=== PATIENT | male | born 1960 | race Caucasian/White ===

== ENCOUNTER 2020-07-20 19:40 | Inpatient (IN) | payer OTHER, SELFPAY ==
[~2020-07-20 19:40] MED LIST: Iopamidol-370 76% 500 ML 1 ML ONE
[2020-07-20] MEDS ORDERED: Norepinephrine 8 MG/0.9% NS 250 ML ONE (19:54)
[2020-07-20 20:03] LABS: Bacteria/HPF 3+ HPF (None Seen); Bilirubin Negative (Negative); Blood, Urine Trace (Negative); Clarity Turbid (Clear); Glucose, Urine (Dipstick) Normal (Negative); Ketone, Urine Negative (Negative); Leukocyte 75 Leu/uL (Negative); Nitrite Negative (Negative); Protein, Urine (Dipstick) 70 mg/dL (Neg-Trace); Specific Gravity, Urine 1.017 (1.002-1.036); Squamous Epithelial 0-3 HPF (0-3); Urobilinogen 3 mg/dL (Less than 2)
[2020-07-20 20:07] LABS: Actual Bicarbonate (HCO3a) 16.1 mEq/L (22-28); Analyzer IN Cardio ER; Base Excess (BEa) -14.3 mEq/L (-2.0 to +3.0); CO2 Tension 53.8 mmHg (35.0-45.0); Calcium, Ionized (arterial) 1.19 mmol/L (1.12-1.30); Carboxyhemoglobin (COHb) 2.7 gm% (0.0-3.0); O2 Tension (PaO2), arterial 95.9 mmHg (80.0-100.0); Potassium - ABG Lab 3.32 mmol/L (3.70-5.30)
[2020-07-20 20:08] LABS: pH, Arterial 7.09 (7.35-7.45)
[2020-07-20 20:09] LABS: Sperm/HPF Rare HPF (None Seen)
[2020-07-20 20:09] LABS: Hemoglobin (Hb) 20.8 g/dL (14.0-18.0); Puncture Site RRA
[2020-07-20 20:13] LABS: Hemoglobin 20.5 g/dL (14.0-18.0); Mean Corpuscular HGB CONC 33.1 g/dL (32.0-36.0); Mean Corpuscular Hemoglobin 30.1 pg (27.0-31.0); Mean Corpuscular Volume 90.9 fL (78.0-98.0); Mean Platelet Volume 7.7 fL (7.4-10.4); Platelet Count 325 thou/uL (130-400); RBC Distribution Width 12.3 % (11.5-14.5); White Blood Cell (WBC) Count 21.9 thou/uL (4.8-10.8)
[2020-07-20 20:15] LABS: INR-International Normal Ratio 1.5; PTT 47.7 sec (22.9-36.1); Prothrombin Time 18.9 sec (12.0-14.7)
[2020-07-20 20:16] LABS: Amphetamine Not Detected (NotDetected); Barbiturates Screen Not Detected (NotDetected); Benzodiazepine Screen Not Detected (NotDetected); Cocaine Metabolite Screen Not Detected (NotDetected); Medtox Control Line Valid? VALID (VALID); Medtox Reader # READER 1; Methadone Not Detected (NotDetected); Methamphetamine Not Detected (NotDetected); Opiate Screen Not Detected (NotDetected); Oxycodone Screen Not Detected (NotDetected); Phencyclidine (PCP) Not Detected (NotDetected); THC/Cannabinoid Screen Not Detected (NotDetected); Tricyclic Screen Not Detected (NotDetected)
[2020-07-20 20:23] LABS: Acetaminophen Less than 6.0 mcg/mL (10.0-30.0); Alcohol Less than 10 mg/dL (Less than 10); Salicylate Less than 8.0 mg/dL (15.0-30.0)
[2020-07-20] MEDS ORDERED: Vancomycin 1 GM/200 ML BAG ONE (20:25)
[2020-07-20] MEDS ORDERED: Cefepime 2 GM VIAL ONE (20:25)
[2020-07-20 20:30] LABS: D-Dimer Test Greater than 20.00 *mcg/mL (0.27-0.43)
[2020-07-20] MEDS ORDERED: Vasopressin 20 UNIT, Admixture Fee 1 EACH in Sodium Chloride 0.9% 50 ML IV SCH (20:30)
[2020-07-20 20:34] LABS: Band 23 % (5-11); Eosinophils 1 % (0-10); Lymphocytes 16 % (21-51); MDiff Complete? YES; Monocytes 1 % (0-10); Neutrophil 51 % (42-75); Platelet Morphology Comment Appears Adequate; Polychromasia SLIGHT = 2-3 cells (100X) (0-2/hpf); Reactive Lymphocytes 8 % (0-10)
[2020-07-20 20:37] LABS: Albumin 3.4 g/dL (3.5-5.0)
[2020-07-20 20:39] LABS: Calcium 7.8 mg/dL (7.8-10.44); Chloride 110 mmol/L (98-107); Potassium 3.4 mmol/L (3.5-5.1); Sodium 137 mmol/L (136-145)
[2020-07-20 20:40] LABS: Actual Bicarbonate (HCO3a) 16.1 mEq/L (22-28); Analyzer IN Cardio ER; Base Excess (BEa) -12.9 mEq/L (-2.0 to +3.0); Calcium, Ionized (arterial) 1.05 mmol/L (1.12-1.30); Carboxyhemoglobin (COHb) 3.1 gm% (0.0-3.0); Hemoglobin (Hb) 16.9 g/dL (14.0-18.0); O2 Tension (PaO2), arterial 135.1 mmHg (80.0-100.0); Potassium - ABG Lab 3.08 mmol/L (3.70-5.30)
[2020-07-20 20:40] LABS: Globulin 2.7 g/dL (2.4-3.5); Glucose 222 mg/dL (70-105); Protein, Total 6.1 g/dL (6.0-8.3)
[2020-07-20 20:41] LABS: Anion Gap 22 mmol/L (10-20)
[2020-07-20 20:42] LABS: pH, Arterial 7.14 (7.35-7.45)
[2020-07-20 20:42] LABS: Bilirubin, Total 0.3 mg/dL (0.2-1.2)
[2020-07-20 20:43] LABS: Alkaline Phosphatase 96 U/L (40-110); Calc. Creatinine Clearance 0 mL/min (70-130); Estimated GFR-MDRD 68
[2020-07-20 20:44] LABS: BUN (Urea Nitrogen) 12 mg/dL (8.4-25.7); Carbon Dioxide 8 mmol/L (22-29)
[2020-07-20 20:45] LABS: AST (SGOT) 37 U/L (5-34)
[2020-07-20 20:46] LABS: ALT (SGPT) 25 U/L (8-55); CK (CPK) 149 U/L (30-200); Lipase 81 U/L (8-78)
[2020-07-20 20:48] LABS: CKMB 6.9 ng/mL (0-6.6)
--- NOTE | 2020-07-20 20:51 | RAD ---
CHEST ONE VIEW: 07/20/20 COMPARISON: 07/24/16. HISTORY: Unresponsive patient. FINDINGS: Endotracheal tube terminates at the level of the clavicles. Nasogastric tube extends beyond the diaph ragm. There are sternotomy wires. There is atherosclerosis of the aorta. Normal cardiac silhouette. Diminis hed lung volumes, likely due to poor inspiration. Chronic changes are suspected. Superimposed infiltr ate in the right lower lobe and left lower lobe cannot be entirely excluded. Small left sided effusion. No pneumothorax or acute osseous abnormalities. IMPRESSION: 1. Multilobar pneumonia versus aspiration. 2. Small left effusion. POS: PPP
[2020-07-20] MEDS ORDERED: Fentanyl 100 MCG/2 ML VIAL ONE (20:54)
--- NOTE | 2020-07-20 21:05 | CT ---
CT BRAIN WITHOUT CONTRAST: HISTORY: Altered mental status FINDINGS: No evidence of acute infarct, hemorrhage, midline shift or abnormal extra-axial fluid collections is seen. The ventricular size is appropriate and the basilar cisterns are patent. A prominent cisterna magna is seen. The bony calvarium is intact. There is mucosal disease in the paranasal sinuses. IMPRESSION: No CT evidence of acute intracranial process.
--- NOTE | 2020-07-20 21:47 | CT ---
CT ANGIOGRAM OF THE THORACIC AORTA CT ANGIOGRAM OF THE ABDOMINAL AORTA 07/20/20 HISTORY: Unresponsive, hypotensive patient. COMPARISON: 04/01/15. FINDINGS: CHEST CT: Endotracheal tube at the level of the thoracic inlet. Nasogastric tube extends beyond the diaphragm a nd terminates in the stomach. MEDIASTINUM: No mass, lymphadenopathy or hematoma. Enlarged heart size. No significant pericardial fluid. There ar e coronary calcifications. Trachea and central bronchi are patent. There are extensive emphysematous changes in the lung parench yma. Tiny contained pleural based lucencies are noted in the right upper lobe which may represent con tained pneumothoraces from previous bleb or bulla that have collapsed or popped. There are diffuse gr ound glass opacities involving the lung parenchyma suggesting edema. Small bilateral effusions with b ibasilar consolidation. Trachea and central bronchi are patent. There are right hilar and subcarinal calcified lymph nodes. ABDOMEN CT: Diffuse hypoattenuation of the liver likely due to fatty infiltration. Spleen, pancreas and adrenal g lands have appropriate attenuation and enhancement. There is moderate dilatation of the left intrarenal collecting system and visualized ureter. No evide nce of right sided obstructive uropathy. No mesenteric mass, lymphadenopathy, free air or free fluid. Limited evaluation of the alimentary canal by lack of oral contrast. There are multiple prominent flu id filled small bowel loops. Correlate for possible developing ileus or obstruction. Ileocecal juncti on is normal. Normal caliber appendix. The visualized colon is unremarkable. 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 The ulcerati on currently measures 2.0 x 1.3 cm, previously measuring 1.4 x 3.1 cm. The ascending thoracic aorta, origin of the great vessels of the neck and descending thoracic aorta demonstrate atherosclerosis. No aneurysm, dissection or periaortic fat stranding. There is tortuosity of the celiac artery and super ior mesenteric arteries. No evidence of high grade stenosis. There is an endovascular aortobi-iliac s tent. The stent is adequately opacified with contrast. The excluded lumen measures 4.8 x 5.5 cm. Eval uation for an endoleak is limited due to the lack of noncontrast images. Based on the current images, no obvious endoleak. Both iliac arteries appear to be patent. Bilateral renal artery ostia demonstra te atherosclerosis. There are no lytic or blastic lesions in the osseous structures. There is adequat e contrast opacification of the pulmonary arterial system to the level of the lobar arteries. No evid ence of thromboembolism. IMPRESSION: 1. Diffuse ground glass opacities in the lung parenchyma suggesting edema or infiltrate. There a re bilateral effusions with bibasilar consolidation. 2. Emphysematous changes in the lung parenchyma redemonstrated. Tiny small foci of possible locu lated air in the pleural space is noted at the right lung apex. This loculated air is technically con sistent with pneumothorax but is possibly contained and may represent a chronic process from previous ruptured bleb or bullae. As a conservative measure, follow-up radiograph is recommended. 3. Redemonstration of the ulceration involving the medial aortic arch. The saccular aneurysm has decreased in size. Exclusion of an intrarenal abdominal aortic aneurysm with placement of an aortobi -iliac stent. Limited evaluation for endoleak due to lack of IV contrast. 4. Possibly developing bowel obstruction. 5. Moderate left sided hydronephrosis. 6. No evidence of thromboembolism to the level of the lobar arteries. 7. Results of the study discussed with Dr. Stallings, 07/20/20 at 9:22 p.m. Code CR POS: PPP
[2020-07-20] MEDS ORDERED: Aspirin 300 MG Suppository ONE (21:55)
[2020-07-20] MEDS ORDERED: Propofol 1,000 MG/100 ML VIAL IV ONE (22:15)
[2020-07-20] MEDS ORDERED: Sodium Bicarb 50 MEQ/50 ML Abboject 8.4% SYRINGE ONE ×2 (22:19→22:42)
[2020-07-20] MEDS ORDERED: Rocuronium Bromide 10 MG/ML (10ML VIAL) ONE ×2 (22:19→22:27)
[2020-07-20] MEDS ORDERED: Rocuronium Bromide 50 MG/5 ML VIAL ONE (22:21)
[2020-07-20] MEDS ORDERED: Sodium Bicarb 50 MEQ/50 ML VIAL ONE (22:21)
[2020-07-20 22:37] LABS: Actual Bicarbonate (HCO3a) 15.9 mEq/L (22-28); Analyzer IN Cardio ER; Base Excess (BEa) -12.5 mEq/L (-2.0 to +3.0); CO2 Tension 45.2 mmHg (35.0-45.0); Calcium, Ionized (arterial) 1.08 mmol/L (1.12-1.30); Carboxyhemoglobin (COHb) 1.3 gm% (0.0-3.0); Hemoglobin (Hb) 18.6 g/dL (14.0-18.0); O2 Tension (PaO2), arterial 119.7 mmHg (80.0-100.0); Potassium - ABG Lab 3.85 mmol/L (3.70-5.30)
[2020-07-20 22:46] LABS: Puncture Site LRA; pH, Arterial 7.17 (7.35-7.45)
[2020-07-20] MEDS ORDERED: Electrolyte Replacement Protoc 1 EACH EACH IVPB PRN (22:56)
[2020-07-20] MEDS ORDERED: Ventilator Sedation Protocol 1 EACH FS SCH (23:00)
[2020-07-20 23:15] LABS: Lactic Acid 2.3 mmol/L (0.5-2.2)
[2020-07-20] MEDS ORDERED: Propofol BOLUS 1,000 MG/100 ML VIAL IV PRN (23:15)
[2020-07-20] MEDS ORDERED: Morphine 2 MG/ML VIAL SLOW IVP PRN (23:15)
[2020-07-20] MEDS ORDERED: Fentanyl BOLUS 250 ML IVPB PRN (23:15)
[2020-07-20] MEDS ORDERED: DISCONTINUE PREVIOUS NARCOTIC PAIN MEDICATIONS AND BENZODIAZEPINES FS SCH (23:15)
--- NOTE | 2020-07-20 23:21 | PDOC.HHP ---
Hospitalist HPI - History of Present Illness Unresponsiveness History of Present Illness: 60-year-old gentleman with a history of aortic dissection status post repair was found unresponsive and hypotensive by EMS. Patient's family report he collapsed suddenly. CPR was performed by EMS, 7 rounds of epinephrine given, with regain of pulse patient was intubated on the field, started on Levophed drip and pa tient brought to the emergency department. Patient was unresponsive on arrival and could not give any history. It is unknown how much time elapsed during the CPR. He was given for bolus of normal saline for persistent hypotension, Levophed drip titrated up and vasopressin added. Emergency staff report patient became more responsive. Blood work demonstrated severe metabolic acidosis, leukocytosis, polycythemia with hemoglobin of 20. CT dissection chest report bilateral lung infiltrates, no aortic aneurysm. CT scan also reported emphysematous changes and blebs, loculated air in the lungs, diffuse groundglass opacities suggestive of interstitial edema, left moderate hydronephrosis, persi stent ulceration of the medial aortic arch and old saccular aneurysm. It also reported possible developing bowel obstruction. Brain CT was negative for any acute intracranial process. Director Consumer was contacted by the ED physician who recommended IV bicarbonate for metabolic acidosis and cerebral arterial blood gas. Patient systolic blood pressure is in the low 100s on 2 vasopressors. ED Course: Patient was given multiple doses of bicarb for metabolic acidosis. Placed on Levophed and vasopressin drips. Given rocuronium and fentanyl infusion for sedation. Given IV cefepime and vancomycin for sepsis. Given 4 L IV normal saline bolus. Hospitalist ROS - Review of Systems ROS unobtainable: due to mental status - Medication Medications: Medication Instructions Recorded Confirmed Type Apixaban [Eliquis] 5 mg PO BID #60 tab 07/28/16 Rx Levofloxacin [Levaquin] 500 mg PO DAILY #7 tablet 07/28/16 Rx Propafenone HCl 150 mg PO TID #90 tablet 07/28/16 Rx Hospitalist History - Past Medical History Source: family Cardiac: reports: HTN, Other (Aortic dissection/aneurysm.) Pulmonary: reports: emphysema Heme/Onc: reports: Other (Thrombocytosis) Endocrine: reports: Diabetes - Past Surgical History Past Surgical History: reports: Other (Vascular surgery) - Family History Family History: reports: no pertinent history - Social History Smoking Status: Former smoker Alcohol: reports: None Drugs: reports: none - Exam General - other findings: Sedated and on mechanical ventilation Eye: PERRL, anicteric sclera ENT: normocephalic atraumatic ENT - other findings: ET tube Neck: supple, no JVD Heart: RRR, no murmur Respiratory - other findings: Bilateral crackles Gastrointestinal: soft Extremities: no cyanosis, no edema Skin: normal turgor Neurological - other findings: Unresponsive. He withdraws all limbs to pain. Psychiatric - other findings: Unresponsive. Hospitalist Results - Labs Result Diagrams: 07/21/20 04:00 07/21/20 04:00 Lab results: WBC 21.9 thou/uL (4.8-10.8) H 07/20/20 19:57 Hgb 20.5 g/dL (14.0-18.0) H* 07/20/20 19:57 Hct 61.8 % (42.0-52.0) H* 07/20/20 19:57 MCV 90.9 fL (78.0-98.0) 07/20/20 19:57 Plt Count 325 thou/uL (130-400) 07/20/20 19:57 Band Neuts % (Manual) 23 % (5-11) H 07/20/20 19:57 ABG pH 7.17 (7.35-7.45) L* 07/20/20 22:26 ABG pCO2 45.2 mmHg (35.0-45.0) H 07/20/20 22:26 ABG pO2 119.7 mmHg (80.0-100.0) H 07/20/20 22:26 Sodium 137 mmol/L (136-145) 07/20/20 19:57 Potassium 3.4 mmol/L (3.5-5.1) L 07/20/20 19:57 Chloride 110 mmol/L (98-107) H 07/20/20 19:57 Carbon Dioxide 8 mmol/L (22-29) L* 07/20/20 19:57 BUN 12 mg/dL (8.4-25.7) 07/20/20 19:57 Creatinine 1.11 mg/dL (0.7-1.3) 07/20/20 19:57 Glucose 222 mg/dL (70-105) H 07/20/20 19:57 Lactic Acid 2.3 mmol/L (0.5-2.2) H 07/20/20 22:50 Calcium 7.8 mg/dL (7.8-10.44) 07/20/20 19:57 Total Bilirubin 0.3 mg/dL (0.2-1.2) 07/20/20 19:57 AST 37 U/L (5-34) H 07/20/20 19:57 ALT 25 U/L (8-55) 07/20/20 19:57 Alkaline Phosphatase 96 U/L (40-110) 07/20/20 19:57 Ammonia 52 umol/L (18-72) 07/20/20 19:57 Creatine Kinase 149 U/L (30-200) 07/20/20 19:57 CK-MB (CK-2) 6.9 ng/mL (0-6.6) H* 07/20/20 19:57 Troponin I 0.148 ng/mL (< 0.028) H 07/20/20 19:57 B-Natriuretic Peptide 13.1 pg/mL (0-100) 07/20/20 19:57 Serum Total Protein 6.1 g/dL (6.0-8.3) 07/20/20 19:57 Albumin 3.4 g/dL (3.5-5.0) L 07/20/20 19:57 Lipase 81 U/L (8-78) H 07/20/20 19:57 Urine Ketones Negative mg/dL (Negative) 07/20/20 19:55 Urine Blood Trace (Negative) A 07/20/20 19:55 Urine Nitrite Negative (Negative) 07/20/20 19:55 Ur Leukocyte Esterase 75 Perry/uL (Negative) A 07/20/20 19:55 Urine RBC 4-6 HPF (0-3) A 07/20/20 19:55 Urine WBC 11-20 HPF (0-3) A 07/20/20 19:55 Ur Squamous Epith Cells 0-3 HPF (0-3) 07/20/20 19:55 Urine Bacteria 3+ HPF (None Seen) A 07/20/20 19:55 Hospitalist H&P A/P - Problem (1) Acute respiratory failure with hypoxia Code(s): J96.01 - ACUTE RESPIRATORY FAILURE WITH HYPOXIA Status: Acute Assessment and Plan: Patient intubated on mechanical ventilation. Continue mechanical ventilation. Sedation protocol per Pulmonary. Patient currently on rocuronium and fentanyl infusion. Further management per pulmonary. (2) PEA (Pulseless electrical activity) Code(s): I46.9 - CARDIAC ARREST, CAUSE UNSPECIFIED Status: Acute Assessment and Plan: Status post CPR with ROSC. Patient more responsive before sedation per ED staff. Unknown etiology-could be secondary to sepsis/acidemia Telemetry. Trend troponin. Cardiology consult. Obtain echocardiogram. Lovenox. (3) Pneumonia Code(s): J18.9 - PNEUMONIA, UNSPECIFIED ORGANISM Status: Acute Assessment and Plan: Baseline emphysema. Groundglass opacity. Could be COVID. Patient been screened for COVID IV cefepime and vancomycin Follow blood culture. Tracheal aspirate for culture. (4) Cardiogenic shock Code(s): R57.0 - CARDIOGENIC SHOCK Status: Acute Assessment and Plan: Secondary to PEA Continue vasopressors and titrate. Echocardiogram to assess EF. (5) Septic shock Code(s): A41.9 - SEPSIS, UNSPECIFIED ORGANISM; R65.21 - SEVERE SEPSIS WITH SEPTIC SHOCK Status: Acute Assessment and Plan: Hypotension could also be secondary to sepsis from pneumonia. Continue vasopressors. Aggressive IV hydration (6) Metabolic acidosis Code(s): E87.2 - ACIDOSIS Status: Acute Assessment and Plan: Unknown cause. Not sure if this is secondary to DKA given elevated blood glucose. Serial ABG Status post bicarb IVP. Start bicarb drip. Monitor BMP every 6 hours. Nephrology consult. (7) Hydronephrosis Code(s): N13.30 - UNSPECIFIED HYDRONEPHROSIS Status: Acute Assessment and Plan: Left moderate hydronephrosis. No evidence of urinary retention. Lira catheter placed. - Plan Plan: Critical care time spent managing his metabolic acidosis, hypotension was about 45 minutes.
[2020-07-20] MEDS: Sodium Bicarbonate 150 MEQ in Dextrose 5% in Water 1,000 ML IV SCH (23:54)
[2020-07-21 00:17] LABS: Anion Gap 15 mmol/L (10-20); BUN (Urea Nitrogen) 15 mg/dL (8.4-25.7); Calc. Creatinine Clearance 104 mL/min (70-130); Calcium 6.7 mg/dL (7.8-10.44); Carbon Dioxide 20 mmol/L (22-29); Chloride 111 mmol/L (98-107); Estimated GFR-MDRD 73; Glucose 256 mg/dL (70-105); Sodium 142 mmol/L (136-145)
[2020-07-21] MEDS: Propofol 1,000 MG/100 ML VIAL IV PRN ×5 (01:02→17:11)
[2020-07-21 01:07] LABS: SARS-CoV-2 NAA Rapid Test Not Detected (NotDetected)
[2020-07-21] MEDS: Vancomycin 1.5 GRAM/300 ML BAG 1.5 GM in Premix Bag 1 BAG IVPB SCH ×2 (01:26→13:43)
[2020-07-21] MEDS: Norepinephrine 8 MG/0.9% NS 250 ML IVPB PRN ×2 (03:54→19:58)
[2020-07-21 04:43] LABS: ALT (SGPT) 41 U/L (8-55); AST (SGOT) 46 U/L (5-34); Albumin 3.1 g/dL (3.5-5.0); Alkaline Phosphatase 66 U/L (40-110); Anion Gap 16 mmol/L (10-20); BUN (Urea Nitrogen) 18 mg/dL (8.4-25.7); Bilirubin, Total 0.4 mg/dL (0.2-1.2); Calc. Creatinine Clearance 105 mL/min (70-130); Calcium 6.9 mg/dL (7.8-10.44); Carbon Dioxide 21 mmol/L (22-29); Chloride 107 mmol/L (98-107); Estimated GFR-MDRD 74; Globulin 1.8 g/dL (2.4-3.5); Glucose 309 mg/dL (70-105); Potassium 4.1 mmol/L (3.5-5.1); Protein, Total 4.9 g/dL (6.0-8.3); Sodium 140 mmol/L (136-145)
[2020-07-21 04:58] LABS: Band 10 % (5-11); Hemoglobin 16.2 g/dL (14.0-18.0); Lymphocytes 3 % (21-51); MDiff Complete? YES; Mean Corpuscular HGB CONC 32.3 g/dL (32.0-36.0); Mean Corpuscular Hemoglobin 28.7 pg (27.0-31.0); Mean Platelet Volume 7.8 fL (7.4-10.4); Monocytes 3 % (0-10); Neutrophil 84 % (42-75); Platelet Count 293 thou/uL (130-400); Red Blood Cell (RBC) Count 5.66 mill/uL (4.70-6.10); White Blood Cell (WBC) Count 28.6 thou/uL (4.8-10.8)
[2020-07-21] MEDS: Insulin Regular 300 UNITS/3 ML VIAL SC PRN ×4 (05:21→22:51)
[2020-07-21 06:55] LABS: Actual Bicarbonate (HCO3a) 19.9 mEq/L (22-28); CO2 Tension 33.5 mmHg (35.0-45.0); Calcium, Ionized (arterial) 1.02 mmol/L (1.12-1.30); Carboxyhemoglobin (COHb) 1.1 gm% (0.0-3.0); Hemoglobin (Hb) 16.1 g/dL (14.0-18.0); O2 Tension (PaO2), arterial 94.9 mmHg (80.0-100.0); Potassium - ABG Lab 3.73 mmol/L (3.70-5.30); pH, Arterial 7.39 (7.35-7.45)
[2020-07-21 06:56] LABS: ALV-art Gradient 148.425 mmHg (0-20); Puncture Site RBA
[2020-07-21] MEDS: Lorazepam 2 MG/ML VIAL SLOW IVP PRN ×2 (07:43→10:54)
[2020-07-21] MEDS: Sodium Bicarbonate 150 MEQ in Dextrose 5% in Water 1,000 ML IV SCH ×2 (07:43→11:52)
[2020-07-21] MEDS: Enoxaparin Sodium 40 MG/0.4 ML SYRINGE SC SCH (08:24)
[2020-07-21] MEDS: Pantoprazole 40 MG VIAL IVP SCH (08:54)
[2020-07-21] MEDS ORDERED: Cefepime 2 GM in Sodium Chloride 0.9% 100 ML IVPB SCH (09:00)
[2020-07-21] MEDS ORDERED: Vancomycin 1 GM in Premix Bag 1 BAG IVPB SCH (09:00)
--- NOTE | 2020-07-21 09:06 | CON ---
DATE OF CONSULTATION: 07/21/2020 35 minutes of critical care time. REASON FOR CONSULTATION: The patient is intubated. HISTORY OF PRESENT ILLNESS: This is a 60-year-old male, who was brought in after family called EMS, reporting the patient was unresponsive. He received [id number] CPR. He had doses of epinephrine. It is not known how long he was down. Eventually obtained return of spontaneous circulation. The nurse tells me that the patient will move around when sedation is decreased. He is currently having an echocardiogram performed. PAST MEDICAL HISTORY: 1. He has had aortic dissection in the past. 2. Hypertension. 3. Emphysema. 4. Thrombocytosis. 5. Diabetes mellitus. PAST SURGICAL HISTORY: Had some kind of aortic graft placed. FAMILY MEDICAL HISTORY: Unremarkable. SOCIAL HISTORY: Former smoker. Does not consume alcohol. MEDICATIONS: Prior to admission, 1. Eliquis 5 mg b.i.d. 2. Levaquin 500 mg daily. 3. Propoxyphene 150 mg t.i.d. REVIEW OF SYSTEMS: Cannot be obtained as he is currently on mechanical ventilation. PHYSICAL EXAMINATION: VITAL SIGNS: Temperature 98.1, pulse 56, blood pressure 120/63, O2 saturation 98%. He is currently on norepinephrine drip of 16 mcg/minute. He is on propofol. He is also on a sodium bicarbonate drip. His intake since admission has been 1155 mL, output 1075 mL. HEENT: Unremarkable except for being intubated orally. NECK: No JVD. CARDIAC: S1 and S2 with a 3/6 systolic murmur. LUNGS: Clear anteriorly. ABDOMEN: Soft, obese, nontender. EXTREMITIES: No clubbing, cyanosis, or edema. NEUROLOGIC: I can get him to withdraw to pain, although he is heavily sedated at the current time. LABORATORY DATA: White blood cell count 28.6, hematocrit 50, platelet count 293. INR 1.5. PH of 7.39, pCO2 of 33, pO2 of 94 on SIMV rate 24, tidal volume 500, PEEP 5, pressure support 10, FiO2 of 40%. Sodium 140, potassium 4.1, chloride 107, CO2 of 21, BUN 18, creatinine 1.1, glucose 309. Urinalysis shows proteinuria, elevated white blood cells. Tox screen was essentially negative. COVID-19 test was negative. Chest x-ray shows some interstitial changes at the bases. Brain CT showed no evidence of acute process. Also noted, the patient had no evidence of pulmonary embolism or CT dissection protocol. ASSESSMENT: 1. Status post out of hospital arrest, etiology not known. 2. Acute respiratory failure, requiring mechanical ventilation. 3. Urinary tract infection. 4. Question of concurrent pneumonia. 5. Corrected lactic acidosis. PLAN: 1. Agree with empiric antibiotics. 2. Wean off vasopressors as tolerated. 3. Agree with bicarbonate drip. 4. Reassess mental status throughout the day, see if he would be a candidate for weaning in the upcoming days. 5. Add Protonix for GI prophylaxis. 6. Sliding scale insulin for hyperglycemia. Job ID: [id number]
[2020-07-21] MEDS: fentaNYL Citrate/PF 2,000 MCG in Sodium Chloride 0.9% 60 ML IV SCH ×2 (09:33→22:52)
--- NOTE | 2020-07-21 10:41 | PDOC.HOSPP ---
- Subjective Encounter Date: 07/21/20 Encounter Time: 08:30 Subjective: no overnight events. this morning, intubated and sedated. - Objective Vital Signs & Weight: Vital Signs (12 hours) Temp Pulse Resp Pulse Ox 07/21/20 10:00 24 H 07/21/20 08:00 24 H 07/21/20 07:09 97 07/21/20 07:00 98.1 F 07/21/20 06:41 58 L 07/21/20 06:00 24 H 07/21/20 04:00 98.3 F 24 H 07/21/20 02:31 60 07/21/20 02:00 24 H 07/21/20 00:00 98.8 F 24 H 07/20/20 23:13 78 07/20/20 23:12 99 Weight Weight 211 lb 4.8 oz Most Recent Monitor Data Heart Rate from ECG 59 NIBP 138/71 NIBP BP-Mean 93 Respiration from ECG 24 SpO2 98 I&O: 07/20/20 07/21/20 07/22/20 06:59 06:59 06:59 Intake Total 1155 0 Output Total 1075 285 Balance 80 -285 Result Diagrams: 07/21/20 04:00 07/21/20 04:00 Hospitalist ROS - Review of Systems ROS unobtainable: due to endotracheal tube - Medication Medications: Active Medications Generic Name Dose Route Start Last Admin Trade Name Freq PRN Reason Stop Dose Admin Enoxaparin Sodium 40 mg 07/21/20 09:00 07/21/20 08:24 Enoxaparin Sodium 40 Mg/0.4 Ml Syringe SC 40 mg 0900 JOO Administration Fentanyl Citrate 2,000 mcg/ 100 mls @ 0 mls/hr 07/20/20 20:45 07/21/20 09:33 Sodium Chloride IV 08/19/20 20:45 100 mls INF JOO Administration Protocol Per Protocol Cefepime HCl 2 gm/ Sodium 100 mls @ 200 mls/hr 07/21/20 09:00 07/21/20 08:24 Chloride IVPB 100 mls Q12HR JOO Administration Norepinephrine Bitartrate 250 mls @ 0 mls/hr 07/20/20 22:56 07/21/20 03:54 Levophed IVPB 250 mls PRN PRN Administration To maintain MAP > 65 Protocol Titrate Sodium Bicarbonate 150 meq/ 1,150 mls @ 125 mls/hr 07/20/20 23:15 07/21/20 07:43 Dextrose/Water IV 1,150 mls .[id number] JOO Administration Vancomycin HCl 1.5 gm/ Device 300 mls @ 200 mls/hr 07/21/20 02:00 07/21/20 01:26 IVPB 300 mls 0200,1400 JOO Administration Insulin Human Regular 0 units 07/20/20 22:56 07/21/20 10:13 Insulin Regular 300 Units/3 Ml Vial SC 4 unit .MILD SLIDING SCALE PRN Administration Mild Correctional Scale Lorazepam 2 mg 07/20/20 23:15 07/21/20 07:43 Lorazepam 2 Mg/Ml Vial SLOW IVP 08/19/20 23:15 2 mg Q1H PRN Administration Breakthrough agitation Pantoprazole Sodium 40 mg 07/21/20 09:00 07/21/20 08:54 Pantoprazole 40 Mg Vial IVP 40 mg DAILY JOO Administration Propofol 1,000 mg 07/20/20 23:15 07/21/20 08:54 Propofol 1,000 Mg/100 Ml Vial IV 08/19/20 23:15 1,000 mg INF PRN Administration TO ACHIEVE GOAL RASS Protocol Sodium Chloride 10 ml 07/21/20 09:00 07/21/20 08:25 Flush - Normal Saline 10 Ml Syringe IVF 10 ml Q12HR JOO Administration - Exam General - other findings: intubated sedated Eye - other findings: 2mm b/l equal ENT: normocephalic atraumatic, moist mucosa Heart: RRR, no gallops, no rubs, normal peripheral pulses Heart - other findings: 4/6 decresensdo pansystolic most audible left 2nd inter costal Respiratory - other findings: coarse breath sounds Gastrointestinal: soft, non-distended, normal bowel sounds Extremities: no edema Neurological - other findings: withdraws to pain despite sedation Hosp A/P - Plan (1) Acute respiratory failure with hypoxia (2) PEA (Pulseless electrical activity) cardiogenic shock Code(s): I46.9 - CARDIAC ARREST, CAUSE UNSPECIFIED Status: Acute Assessment and Plan: Status post CPR with ROSC, 7 rounds of epinephrine Patient more responsive before sedation per ED staff. p-pulmonale on telemetry; CT dissection showed no embolism to the level of the lobar arteries considering pulmonic murmur, polycythemia without hemoconcentration, p- pulmonale, and no emboli up to lobar levels may have had chronic lung dis ease/pHTN/cor pulmonale; additional studies pending pending echo cardiology onboard [facility] onboard #atrial fibrillation has history of afib based on EMR (2016); no anticoag on medication reconciliation currently sinus on tele (3) CAP Code(s): J18.9 - PNEUMONIA, UNSPECIFIED ORGANISM Status: Acute Assessment and Plan: Covid -ve continue vanc and cefepime procalcitonin (though likely elevated in context of shock) resp cultures (4) Septic shock Code(s): A41.9 - SEPSIS, UNSPECIFIED ORGANISM; R65.21 - SEVERE SEPSIS WITH SEPTIC SHOCK Status: Acute Assessment and Plan: Hypotension could also be secondary to sepsis from pneumonia. Continue pressors (5) Metabolic acidosis (improved) Code(s): E87.2 - ACIDOSIS Status: Acute Assessment and Plan: due to shock mild acidosis and respiratory alkalosis (6) left hydroureteronephrosis complicated UTI Code(s): N13.30 - UNSPECIFIED HYDRONEPHROSIS Status: Acute Assessment and Plan: no stone on CT dissection appreciated rebol[place] in place continue hydration, vanc and cefepime if doesn't improve, consult urology #T2DM -q6h glucose subq now that lactate down -mild correction -once glucose stable, can start on long acting Full code GI PPx: on pantoprazole DVT PPx: lovenox
[2020-07-21] MEDS ORDERED: CEFEPIME IVPB PRN (10:56)
[2020-07-21] MEDS: Cefepime 2 GM in Sodium Chloride 0.9% 100 ML IVPB SCH (16:27)
[2020-07-21 16:44] LABS: Anion Gap 13 mmol/L (10-20); BUN (Urea Nitrogen) 16 mg/dL (8.4-25.7); Calc. Creatinine Clearance 130 mL/min (70-130); Calcium 6.7 mg/dL (7.8-10.44); Carbon Dioxide 24 mmol/L (22-29); Chloride 106 mmol/L (98-107); Estimated GFR-MDRD Greater than 90; Glucose 203 mg/dL (70-105); Phosphorus 2.7 mg/dL (2.3-4.7); Potassium 3.2 mmol/L (3.5-5.1); Sodium 140 mmol/L (136-145)
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
[2020-07-21] MEDS ORDERED: Insulin Glargine 10 UNITS in Pre-Filled Syringe SC SCH (21:00)
[2020-07-21] MEDS ORDERED: Insulin Glargine 15 UNITS in Pre-Filled Syringe SC SCH (21:00)
[2020-07-21] MEDS ORDERED: Potassium Chloride 40 MEQ in Premix Bag 1 BAG IVPB SCH (22:30)
[2020-07-22] MEDS: Propofol 1,000 MG/100 ML VIAL IV PRN ×6 (01:25→18:29)
[2020-07-22] MEDS: Vancomycin 1.5 GRAM/300 ML BAG 1.5 GM in Premix Bag 1 BAG IVPB SCH ×2 (01:26→14:45)
[2020-07-22] MEDS: Cefepime 2 GM in Sodium Chloride 0.9% 100 ML IVPB SCH ×3 (01:26→18:30)
[2020-07-22] MEDS: Sodium Bicarbonate 150 MEQ in Dextrose 5% in Water 1,000 ML IV SCH (01:36)
[2020-07-22 05:16] LABS: Hemoglobin 13.4 g/dL (14.0-18.0); Mean Corpuscular HGB CONC 34.5 g/dL (32.0-36.0); Mean Corpuscular Hemoglobin 30.5 pg (27.0-31.0); Mean Corpuscular Volume 88.6 fL (78.0-98.0); Mean Platelet Volume 7.9 fL (7.4-10.4); Platelet Count 208 thou/uL (130-400); White Blood Cell (WBC) Count 12.8 thou/uL (4.8-10.8)
[2020-07-22 05:23] LABS: Band 9 % (5-11); Eosinophils 1 % (0-10); Lymphocytes 27 % (21-51); MDiff Complete? YES; Monocytes 4 % (0-10); Neutrophil 59 % (42-75)
[2020-07-22 05:31] LABS: ALT (SGPT) 28 U/L (8-55); AST (SGOT) 24 U/L (5-34); Albumin 2.7 g/dL (3.5-5.0); Alkaline Phosphatase 54 U/L (40-110); Anion Gap 12 mmol/L (10-20); BUN (Urea Nitrogen) 14 mg/dL (8.4-25.7); Bilirubin, Total 0.2 mg/dL (0.2-1.2); Calc. Creatinine Clearance 145 mL/min (70-130); Calcium 6.9 mg/dL (7.8-10.44); Carbon Dioxide 26 mmol/L (22-29); Chloride 107 mmol/L (98-107); Estimated GFR-MDRD Greater than 90; Globulin 1.7 g/dL (2.4-3.5); Glucose 137 mg/dL (70-105); Potassium 3.1 mmol/L (3.5-5.1); Protein, Total 4.4 g/dL (6.0-8.3); Sodium 142 mmol/L (136-145)
[2020-07-22] MEDS ORDERED: Potassium Chloride 40 MEQ in Sodium Chloride 0.9% 250 ML 250 ML IV SCH (06:30)
[2020-07-22 07:01] LABS: Actual Bicarbonate (HCO3a) 25.3 mEq/L (22-28); Base Excess (BEa) 2.6 mEq/L (-2.0 to +3.0); Calcium, Ionized (arterial) 1.01 mmol/L (1.12-1.30); Carboxyhemoglobin (COHb) 0.4 gm% (0.0-3.0); Hemoglobin (Hb) 13.6 g/dL (14.0-18.0); Potassium - ABG Lab 3.12 mmol/L (3.70-5.30)
[2020-07-22 07:02] LABS: Puncture Site RBA
--- NOTE | 2020-07-22 07:35 | PRG ---
DATE OF SERVICE: 07/22/2020 35 minutes of critical care time. SUBJECTIVE: The patient remains intubated on mechanical ventilation. There has been no acute changes overnight. Neurologically, I can get him to wake up and follow just about every command for me. He nods his head appropriately to questions. OBJECTIVE: VITAL SIGNS: Temperature 98.9, pulse 51, blood pressure 114/65, O2 saturation 96%. Current Levophed at 5 mcg/minute, is also sedated on propofol and fentanyl. Total intake for 24 hours has been 2809, output 1505. HEENT: Unremarkable. NECK: No JVD. LUNGS: Coarse breath sounds. CARDIOVASCULAR: S1 and S2. Slightly bradycardic. ABDOMEN: Soft and nontender to palpation. EXTREMITIES: No clubbing, cyanosis, or edema. DIAGNOSTIC DATA: Cultures are growing nothing at the current time. White blood cell count is 12.8, down from 28.6; hematocrit 39; and platelet count 209. PH 7.5, pCO2 of 33, PO2 of 103, on SIMV rate 24, tidal volume 500, PEEP 5, pressure support 10, FiO2 of 40%. Sodium 142, potassium 3.1, chloride 107, CO2 of 26, BUN 14, creatinine 0.7, and glucose 137. His x-ray looks slightly fluid overloaded. ASSESSMENT: 1. Status post out of hospital arrest. 2. Urosepsis. 3. Question of concurrent left lower lobe pneumonia. 4. Corrected lactic acidosis. PLAN: 1. Stop bicarb drip. 2. Start decreasing ventilator rate in preparation for extubation. 3. Continue antibiotics. Job ID: [id number]
--- NOTE | 2020-07-22 08:20 | RAD ---
PORTABLE CHEST: HISTORY: Respiratory distress, pneumonia. COMPARISON: 07/20/2020 exam. FINDINGS: Heart size is enlarged. Postop sternotomy changes are present. Parenchymal lung changes are similar to the previous examination. There are bibasilar lung changes. Some pleural changes are also seen in the left base and pleural changes in the right upper lobe. IMPRESSION: Essentially stable chest. Endotracheal and nasogastric tubes remain in satisfactory position. POS: PILAR
[2020-07-22] MEDS: Pantoprazole 40 MG VIAL IVP SCH (09:18)
[2020-07-22] MEDS: Atorvastatin Calcium 40 MG TAB PO SCH (09:18)
[2020-07-22] MEDS: Enoxaparin Sodium 40 MG/0.4 ML SYRINGE SC SCH (09:19)
[2020-07-22] MEDS: Sodium Chloride 0.45% 1,000 ML IV SCH ×2 (09:36→22:48)
[2020-07-22] MEDS: fentaNYL Citrate/PF 2,000 MCG in Sodium Chloride 0.9% 60 ML IV SCH (13:18)
[2020-07-22] MEDS ORDERED: Sodium Bicarbonate Tab 325 MG TAB PER TUBE PRN (14:15)
[2020-07-22] MEDS ORDERED: Pancrelipase DR 12,000 1 CAP FS PRN (14:15)
[2020-07-22 14:28] LABS: Vancomycin, Trough 14.7 ug/mL
--- NOTE | 2020-07-22 15:31 | PDOC.HOSPP ---
- Subjective Encounter Date: 07/22/20 Encounter Time: 08:00 Subjective: no overnight events. this morning, remains intubated. Attempted to call brother (DAIJA) to update, left voicemail message stating patient is intubated, responds to stimuli, and being treating for sepsis likely due to compllicated urinary tract infection. - Objective Vital Signs & Weight: Vital Signs (12 hours) Temp Pulse Resp 07/22/20 14:48 78 07/22/20 12:00 16 07/22/20 10:38 78 07/22/20 10:00 18 07/22/20 08:00 99 F 24 H 07/22/20 06:57 53 L 07/22/20 06:00 98.9 F 07/22/20 05:59 24 H 07/22/20 04:00 24 H Weight Admit Weight 211 lb Weight 212 lb 8.41 oz Most Recent Monitor Data Heart Rate from ECG 76 NIBP 116/73 NIBP BP-Mean 87 Respiration from ECG 3 SpO2 97 I&O: 07/21/20 07/22/20 07/23/20 06:59 06:59 06:59 Intake Total 1155 2809 927.8 Output Total 1075 1505 285 Balance 80 1304 642.8 Result Diagrams: 07/22/20 04:00 07/22/20 04:00 Additional Labs: Accuchecks 07/22/20 07/21/20 07/21/20 13:20 22:45 15:58 POC Glucose 80 178 H 199 H Hospitalist ROS - Review of Systems ROS unobtainable: due to endotracheal tube - Medication Medications: Active Medications Generic Name Dose Route Start Last Admin Trade Name Freq PRN Reason Stop Dose Admin Atorvastatin Calcium 40 mg 07/22/20 09:00 07/22/20 09:18 Atorvastatin Calcium 40 Mg Tab PO 40 mg DAILY JOO Administration Enoxaparin Sodium 40 mg 07/21/20 09:00 07/22/20 09:19 Enoxaparin Sodium 40 Mg/0.4 Ml Syringe SC 40 mg 0900 JOO Administration Fentanyl Citrate 2,000 mcg/ 100 mls @ 0 mls/hr 07/20/20 20:45 07/22/20 13:18 Sodium Chloride IV 08/19/20 20:45 100 mls INF JOO Administration Protocol Per Protocol Norepinephrine Bitartrate 250 mls @ 0 mls/hr 07/20/20 22:56 07/21/20 19:58 Levophed IVPB 250 mls PRN PRN Administration To maintain MAP > 65 Protocol Titrate Cefepime HCl 2 gm/ Sodium 100 mls @ 200 mls/hr 07/21/20 17:00 07/22/20 09:15 Chloride IVPB 100 mls 0100,0900,1700 JOO Administration Insulin Glargine 10 units/ 0.1 mls @ 0 mls/hr 07/21/20 21:00 07/21/20 20:03 Miscellaneous Medication SC 0.1 mls HS JOO Administration Sodium Chloride 1,000 mls @ 75 mls/hr 07/22/20 07:15 07/22/20 09:36 1/2 Normal Saline IV 1,000 mls .[id number] JOO Administration Insulin Human Regular 0 units 07/20/20 22:56 07/21/20 22:51 Insulin Regular 300 Units/3 Ml Vial SC 2 unit .MILD SLIDING SCALE PRN Administration Mild Correctional Scale Lorazepam 2 mg 07/20/20 23:15 07/21/20 10:54 Lorazepam 2 Mg/Ml Vial SLOW IVP 08/19/20 23:15 2 mg Q1H PRN Administration Breakthrough agitation Pantoprazole Sodium 40 mg 07/21/20 09:00 07/22/20 09:18 Pantoprazole 40 Mg Vial IVP 40 mg DAILY JOO Administration Propofol 1,000 mg 07/20/20 23:15 07/22/20 14:44 Propofol 1,000 Mg/100 Ml Vial IV 08/19/20 23:15 1,000 mg INF PRN Administration TO ACHIEVE GOAL RASS Protocol Sodium Chloride 10 ml 07/21/20 09:00 07/21/20 19:59 Flush - Normal Saline 10 Ml Syringe IVF 10 ml Q12HR JOO Administration - Exam General - other findings: intubated and sedated Eye: PERRL, anicteric sclera Neck: no JVD Heart: no murmur, no gallops, no rubs Heart - other findings: regular rhythm, bradycardic in 50s Respiratory: CTAB, no wheezes, no rales, no ronchi Gastrointestinal: soft, non-distended, normal bowel sounds Extremities: 1+ LE edema Extremities - other findings: b/l pitting to pretibial level Neurological - other findings: withdraws to pain Hosp A/P - Plan Acute respiratory failure with hypoxia PEA (Pulseless electrical activity) cardiogenic shock Code(s): I46.9 - CARDIAC ARREST, CAUSE UNSPECIFIED Status: Acute Assessment and Plan: unknown etiology Status post CPR with ROSC, 7 rounds of epinephrine Patient more responsive before sedation per ED staff. echo remarkable for dilated left atrium cardiology onboard PCCM onboard Septic shock left hydroureteronephrosis complicated UTI Code(s): N13.30 - UNSPECIFIED HYDRONEPHROSIS Status: Acute Assessment and Plan: no stone on CT dissection appreciated rebolledo in place currently on levophed 4mcg; wean as per PCCM pending UCx CAP Code(s): J18.9 - PNEUMONIA, UNSPECIFIED ORGANISM Status: Acute Assessment and Plan: Covid -ve procalcitonin grossly elevated but in context of shock, nonspecific respiratory stain: many WBC with gram +ve cocci; pending culture continue vanc and cefepime resp cultures #p. atrial fibrillation has history of afib based on EMR (2016); no anticoag on medication reconciliation currently sinus on tele (07/21)-> sinus bradycardia (07/22) cardiology onboard; continue lovenox #T2DM borderline hypoglycemic; mild sliding scale; disconitnue lantus Full code GI PPx: on pantoprazole DVT PPx: lovenox attempted to speak with brother (MPOA); left voice message (07/22)
[2020-07-22 17:51] LABS: Potassium 3.9 mmol/L (3.5-5.1)
[2020-07-23] MEDS: Cefepime 2 GM in Sodium Chloride 0.9% 100 ML IVPB SCH ×3 (00:13→17:39)
[2020-07-23] MEDS: Propofol 1,000 MG/100 ML VIAL IV PRN ×5 (00:14→20:41)
[2020-07-23] MEDS: Vancomycin HCl 1.75 GM in Sodium Chloride 0.9% 500 ML IVPB SCH ×2 (01:15→14:35)
[2020-07-23] MEDS: fentaNYL Citrate/PF 2,000 MCG in Sodium Chloride 0.9% 60 ML IV SCH (04:22)
[2020-07-23 04:46] LABS: Hemoglobin 12.9 g/dL (14.0-18.0); Hypochromia SLIGHT = 6-15 cells (100X) (0-5/hpf); Lymphocytes 49 % (21-51); MDiff Complete? YES; Mean Corpuscular HGB CONC 34.2 g/dL (32.0-36.0); Mean Corpuscular Hemoglobin 30.9 pg (27.0-31.0); Mean Corpuscular Volume 90.3 fL (78.0-98.0); Mean Platelet Volume 7.9 fL (7.4-10.4); Neutrophil 51 % (42-75); Platelet Count 150 thou/uL (130-400); Platelet Morphology Comment Appears Adequate; RBC Distribution Width 12.1 % (11.5-14.5); Red Blood Cell (RBC) Count 4.17 mill/uL (4.70-6.10); White Blood Cell (WBC) Count 8.9 thou/uL (4.8-10.8)
[2020-07-23 04:54] LABS: ALT (SGPT) 26 U/L (8-55); AST (SGOT) 21 U/L (5-34); Alkaline Phosphatase 58 U/L (40-110); Anion Gap 10 mmol/L (10-20); BUN (Urea Nitrogen) 14 mg/dL (8.4-25.7); Bilirubin, Total 0.2 mg/dL (0.2-1.2); Calc. Creatinine Clearance 155 mL/min (70-130); Calcium 7.6 mg/dL (7.8-10.44); Carbon Dioxide 27 mmol/L (22-29); Chloride 105 mmol/L (98-107); Estimated GFR-MDRD Greater than 90; Globulin 1.9 g/dL (2.4-3.5); Glucose 123 mg/dL (70-105); Potassium 3.9 mmol/L (3.5-5.1); Protein, Total 4.9 g/dL (6.0-8.3); Sodium 138 mmol/L (136-145)
[2020-07-23 06:41] LABS: Actual Bicarbonate (HCO3a) 23.6 mEq/L (22-28); Base Excess (BEa) -3.6 mEq/L (-2.0 to +3.0); CO2 Tension 51.9 mmHg (35.0-45.0); Calcium, Ionized (arterial) 1.15 mmol/L (1.12-1.30); Carboxyhemoglobin (COHb) 0.2 gm% (0.0-3.0); Hemoglobin (Hb) 12.9 g/dL (14.0-18.0); O2 Tension (PaO2), arterial 89.9 mmHg (80.0-100.0); Potassium - ABG Lab 3.77 mmol/L (3.70-5.30); pH, Arterial 7.28 (7.35-7.45)
[2020-07-23 06:58] LABS: ALV-art Gradient 130.425 mmHg (0-20); Puncture Site RRAD
--- NOTE | 2020-07-23 08:03 | RAD ---
EXAM: CHEST ONE VIEW HISTORY: Pneumonia. Follow-up evaluation. COMPARISON: 07/22/2020 FINDINGS: Endotracheal tube and nasogastric tubes remain in place. Postoperative changes related to CABG are ag ain noted. Cardiac silhouette is magnified by projection but does appear mildly enlarged. There are stable parenchymal opacity seen in the right lung apex. There is mild increase in perihilar interstit ial opacities. Patchy opacity at the right lung base is mildly improved. No other interval change. IMPRESSION: Overall stable chest with increased perihilar interstitial opacities and stable opacity right lung ap ex. There is been slight interval improvement in the patchy opacity at each lung base compared to the prior exam.
[2020-07-23] MEDS ORDERED: Furosemide 40 MG/4 ML VIAL SLOW IVP SCH (08:30)
--- NOTE | 2020-07-23 08:41 | PRG ---
DATE OF SERVICE: 07/23/2020 35 minutes of critical care time. SUBJECTIVE: The patient remains intubated on mechanical ventilation. He is not quite as awake as he was yesterday. OBJECTIVE: VITAL SIGNS: His temperature is 99, pulse 65, blood pressure 92/50, respiratory rate 12. His intake for 24 hours was 4741, output 1465. HEENT: Remarkable for copious oropharyngeal secretions. NECK: No JVD. CHEST: Fairly clear anteriorly. CARDIAC: S1 and S2. Regular. ABDOMEN: Obese, soft, nontender. EXTREMITIES: No edema. LABORATORY DATA: PH 7.28, pCO2 of 51, pO2 of 89, on SIMV rate 12, tidal volume 500, PEEP 5, pressure support 10, FiO2 of 40%. Sodium 138, potassium 3.9, chloride 105, CO2 of 27, BUN 14, creatinine 0.7, glucose 123. White blood cell count 8.9, hematocrit 37.6, and platelet count 150. His chest x-ray shows some pulmonary edema. ASSESSMENT: 1. Status post out of hospital arrest. 2. Urosepsis. 3. Left lower lobe pneumonia. 4. Acute respiratory failure requiring mechanical ventilation. PLAN: 1. The patient is hypoventilating. This might be secondary to the fentanyl drip, so I will stop that. 2. We will try to convert sedation over to Precedex. 3. He needs a dose of diuretics. 4. Stop the IV fluids and continue tube feeds. 5. I spoke with his brother at bedside. Job ID: [id number]
[2020-07-23] MEDS: Enoxaparin Sodium 40 MG/0.4 ML SYRINGE SC SCH (09:14)
[2020-07-23] MEDS: Atorvastatin Calcium 40 MG TAB PO SCH (09:14)
[2020-07-23] MEDS: Pantoprazole 40 MG VIAL IVP SCH (09:16)
--- NOTE | 2020-07-23 13:08 | PDOC.HOSPP ---
- Subjective Encounter Date: 07/23/20 Encounter Time: 07:30 Subjective: no overnight events. Borderline hypotensive, intuabted and sedated. Respiratory acidosis so per PCCM reducing sedation which may aid with hypotension. Spoke with brother at bedside and explained current treatment and goals. - Objective Vital Signs & Weight: Vital Signs (12 hours) Pulse Resp 07/23/20 11:06 62 07/23/20 06:59 66 07/23/20 06:00 12 07/23/20 04:00 12 07/23/20 02:00 12 Weight Admit Weight 211 lb Weight 212 lb 8.41 oz Most Recent Monitor Data Heart Rate from ECG 63 NIBP 118/70 NIBP BP-Mean 86 Respiration from ECG 12 SpO2 100 I&O: 07/22/20 07/23/20 07/24/20 06:59 06:59 06:59 Intake Total 2809 4741.8 Output Total 1505 1465 Balance 1304 3276.8 Result Diagrams: 07/23/20 04:15 07/23/20 04:15 Additional Labs: Accuchecks 07/23/20 07/23/20 07/22/20 11:21 04:30 21:24 POC Glucose 93 116 H 81 07/22/20 07/22/20 17:23 13:20 POC Glucose 86 80 Hospitalist ROS - Review of Systems ROS unobtainable: due to endotracheal tube - Medication Medications: Active Medications Generic Name Dose Route Start Last Admin Trade Name Freq PRN Reason Stop Dose Admin Atorvastatin Calcium 40 mg 07/22/20 09:00 07/23/20 09:14 Atorvastatin Calcium 40 Mg Tab PO 40 mg DAILY JOO Administration Enoxaparin Sodium 40 mg 07/21/20 09:00 07/23/20 09:14 Enoxaparin Sodium 40 Mg/0.4 Ml Syringe SC 40 mg 0900 JOO Administration Norepinephrine Bitartrate 250 mls @ 0 mls/hr 07/20/20 22:56 07/21/20 19:58 Levophed IVPB 250 mls PRN PRN Administration To maintain MAP > 65 Protocol Titrate Cefepime HCl 2 gm/ Sodium 100 mls @ 200 mls/hr 07/21/20 17:00 07/23/20 09:14 Chloride IVPB 100 mls 0100,0900,1700 JOO Administration Vancomycin HCl 1.75 gm/ Sodium 500 mls @ 250 mls/hr 07/23/20 02:00 07/23/20 01:15 Chloride IVPB 500 mls 0200,1400 JOO Administration Dexmedetomidine HCl 400 mcg/ 100 mls @ 0 mls/hr 07/23/20 08:15 07/23/20 10:01 Sodium Chloride IVPB 100 mls INF JOO Administration Protocol Per Protocol Insulin Human Regular 0 units 07/20/20 22:56 07/21/20 22:51 Insulin Regular 300 Units/3 Ml Vial SC 2 unit .MILD SLIDING SCALE PRN Administration Mild Correctional Scale Lorazepam 2 mg 07/20/20 23:15 07/21/20 10:54 Lorazepam 2 Mg/Ml Vial SLOW IVP 08/19/20 23:15 2 mg Q1H PRN Administration Breakthrough agitation Pantoprazole Sodium 40 mg 07/21/20 09:00 07/23/20 09:16 Pantoprazole 40 Mg Vial IVP 40 mg DAILY JOO Administration Propofol 1,000 mg 07/20/20 23:15 07/23/20 10:01 Propofol 1,000 Mg/100 Ml Vial IV 08/19/20 23:15 1,000 mg INF PRN Administration TO ACHIEVE GOAL RASS Protocol Sodium Chloride 10 ml 07/21/20 09:00 07/23/20 09:17 Flush - Normal Saline 10 Ml Syringe IVF 10 ml Q12HR JOO Administration - Exam General - other findings: intubated, sedated Eye: PERRL, anicteric sclera ENT: moist mucosa Neck: no JVD Heart: RRR, no murmur, no gallops, no rubs Respiratory: CTAB, no wheezes, no rales, no ronchi Gastrointestinal: soft, non-distended, normal bowel sounds Extremities - other findings: b/l pitting edema to pretibial level, worse Hosp A/P - Plan Acute respiratory failure with hypoxia PEA (Pulseless electrical activity) cardiogenic shock Code(s): I46.9 - CARDIAC ARREST, CAUSE UNSPECIFIED Status: Acute Assessment and Plan: unknown etiology Status post CPR with ROSC, 7 rounds of epinephrine Patient more responsive before sedation per ED staff. echo remarkable for dilated left atrium cardiology onboard PCCM onboard; agree with diuresis; feeding started, agree with stopping IVF; maintain I/O balance Septic shock left hydroureteronephrosis complicated UTI Code(s): N13.30 - UNSPECIFIED HYDRONEPHROSIS Status: Acute Assessment and Plan: Respiratory culure negative final urine culture negative final though not certain if culture collected before antibiotics continue vanc and cefepime pending clinical improvement considering the patient remains HD unstable, bedside renal u/s to reassess renal calculi Possible CAP Code(s): J18.9 - PNEUMONIA, UNSPECIFIED ORGANISM Status: Acute Assessment and Plan: Covid -ve procalcitonin grossly elevated but in context of shock, nonspecific CT shows subpleural consolidations and mild interstitial edema; not clear whether acute or chronic findings respiratory cultures negative though limited sensitivity #p. atrial fibrillation has history of afib based on EMR (2016); no anticoag on medication reconciliation currently sinus on tele (07/21)-> sinus bradycardia (07/22) cardiology onboard; continue lovenox #T2DM borderline hypoglycemic (07/22, 07/23); mild sliding scale; hypoglycemia protocol Full code GI PPx: on pantoprazole DVT PPx: lovenox Updated brother at bedside (07/23)
--- NOTE | 2020-07-23 15:17 | ULT ---
BILATERAL RENAL ULTRASOUND: Date: 07/23/2020 HISTORY: Evaluation for hydronephrosis. Recent CT showed left-sided hydronephrosis. COMPARISON: CT examination of 07/20/2020. FINDINGS: Real-time imaging of the right and left kidney performed. Right kidney is normal in size at 12.9 cm. No obstruction or mass. Mild left-sided hydronephrosis is present. The degree of dilatation is felt to be less pronounced darío n on the previous CT study. Bladder is not visualized due to Lira being in place. Trace free fluid is seen adjacent to the right kidney. Suggestion of some slight gallbladder wall thi ckening, possibly some edema within the gallbladder wall or adjacent free fluid. Tiny hypodensity involving the right kidney probably represents a small subcentimeter cyst. There is some fatty change to the liver. IMPRESSION: 1. Fatty change to the liver with what is either some edema within the gallbladder wall or fluid adj acent to the gallbladder. 2. Mild left-sided hydronephrosis. The degree of dilatation is felt to be somewhat less pronounced t rosado was seen on the previous CT study. POS: PILAR
[2020-07-24] MEDS: Cefepime 2 GM in Sodium Chloride 0.9% 100 ML IVPB SCH ×4 (00:25→16:59)
[2020-07-24] MEDS: Vancomycin HCl 1.75 GM in Sodium Chloride 0.9% 500 ML IVPB SCH (01:12)
[2020-07-24] MEDS: Propofol 1,000 MG/100 ML VIAL IV PRN (03:45)
[2020-07-24 05:13] LABS: Eosinophils 2 % (0-10); Hemoglobin 13.1 g/dL (14.0-18.0); Lymphocytes 35 % (21-51); MDiff Complete? YES; Mean Corpuscular HGB CONC 34.3 g/dL (32.0-36.0); Mean Corpuscular Hemoglobin 31.2 pg (27.0-31.0); Mean Corpuscular Volume 90.9 fL (78.0-98.0); Mean Platelet Volume 8.1 fL (7.4-10.4); Monocytes 4 % (0-10); Neutrophil 58 % (42-75); Platelet Count 156 thou/uL (130-400); Platelet Morphology Comment Appears Adequate; RBC Distribution Width 11.8 % (11.5-14.5); RBC Morphology Normal; White Blood Cell (WBC) Count 7.7 thou/uL (4.8-10.8)
[2020-07-24 05:19] LABS: ALT (SGPT) 31 U/L (8-55); AST (SGOT) 25 U/L (5-34); Albumin 2.8 g/dL (3.5-5.0); Alkaline Phosphatase 91 U/L (40-110); Anion Gap 12 mmol/L (10-20); BUN (Urea Nitrogen) 20 mg/dL (8.4-25.7); Bilirubin, Total 0.4 mg/dL (0.2-1.2); Calc. Creatinine Clearance 143 mL/min (70-130); Calcium 7.8 mg/dL (7.8-10.44); Carbon Dioxide 26 mmol/L (22-29); Chloride 103 mmol/L (98-107); Estimated GFR-MDRD Greater than 90; Globulin 2.2 g/dL (2.4-3.5); Glucose 146 mg/dL (70-105); Potassium 3.9 mmol/L (3.5-5.1); Sodium 137 mmol/L (136-145)
[2020-07-24 06:37] LABS: Actual Bicarbonate (HCO3a) 22.9 mEq/L (22-28); Base Excess (BEa) -1.6 mEq/L (-2.0 to +3.0); CO2 Tension 38.2 mmHg (35.0-45.0); Calcium, Ionized (arterial) 1.13 mmol/L (1.12-1.30); Carboxyhemoglobin (COHb) 0.3 gm% (0.0-3.0); Hemoglobin (Hb) 13.2 g/dL (14.0-18.0); O2 Tension (PaO2), arterial 77.7 mmHg (80.0-100.0); Potassium - ABG Lab 3.67 mmol/L (3.70-5.30)
[2020-07-24 06:47] LABS: Puncture Site RRAD
[2020-07-24] MEDS: Enoxaparin Sodium 40 MG/0.4 ML SYRINGE SC SCH ×2 (09:00→10:55)
[2020-07-24] MEDS: Atorvastatin Calcium 40 MG TAB PO SCH (09:00)
[2020-07-24] MEDS: Pantoprazole 40 MG VIAL IVP SCH ×2 (09:00→10:55)
--- NOTE | 2020-07-24 09:19 | PRG ---
DATE OF SERVICE: 07/24/2020 35 minutes of critical care time. SUBJECTIVE: The patient is awake, follows commands. Appears in no distress. Currently sedated on Precedex. OBJECTIVE: VITAL SIGNS: Temperature 99.1, pulse 61, blood pressure 103/60, and O2 saturation 98%. Intake 4235 and output 3315. HEENT: Unremarkable except for being intubated. NECK: No JVD. LUNGS: Clear. CARDIAC: S1 and S2. Obscured by holosystolic click. ABDOMEN: Soft and nontender. EXTREMITIES: No edema. LABORATORY DATA: ABG; pH 7.40, pCO2 of 38, pO2 of 77, SIMV rate 18, tidal volume 500, PEEP 5, pressure support 10, FiO2 of 40%. White blood cell count 7.7, hematocrit 38.1, and platelet count 156. Sodium 137, potassium 3.8, chloride 103, CO2 of 26, BUN 20, creatinine 0.7, and glucose 146. ASSESSMENT: 1. Acute respiratory failure requiring mechanical ventilation. 2. Status post out of hospital arrest. 3. Urosepsis. 4. Left lower lobe pneumonia-improving on x-ray. PLAN: Spontaneous breathing trial. If he tolerates, then he will be extubated. We will continue with the antibiotics, but stop the vancomycin since he has not grown out any staph on cultures. He diuresed profusely with Lasix yesterday. Job ID: [id number]
--- NOTE | 2020-07-24 13:10 | RAD ---
PORTABLE CHEST: HISTORY: Followup pneumonia. COMPARISON: 07/23/2020 exam. FINDINGS: Heart size is enlarged. There is postop sternotomy change. Endotracheal and NG tubes remain in sati sfactory position. Parenchymal lung changes are felt to be similar to the previous exam given the di fferences in technique. IMPRESSION: Essentially stable exam. POS: OFF
--- NOTE | 2020-07-24 17:10 | PRG ---
DATE OF SERVICE: 07/24/2020 SUBJECTIVE: Mr. Bridges was seen shortly after extubation. No current complaints. OBJECTIVE: VITAL SIGNS: Blood pressure 148/78, pulse 82, and temperature afebrile. LUNGS: Rhonchi and rales bilaterally. HEART: Regular rate and rhythm. ABDOMEN: Soft, nontender, and nondistended. EXTREMITIES: 2+ pitting edema. PERTINENT LABORATORY DATA: Hemoglobin 13.1. IMPRESSION: 1. Smt-od-hvnkrlsb arrest. 2. Sepsis. 3. Pneumonia. RECOMMENDATIONS: Etiology to Mr. Bridges's recent demise is unknown. This could have been a dysrhythmia, although with a normal EF is less likely. We will continue antibiotic therapy and close monitoring in the ICU. Job ID: [id number]
[2020-07-25] MEDS: Cefepime 2 GM in Sodium Chloride 0.9% 100 ML IVPB SCH ×3 (00:06→17:11)
[2020-07-25 05:35] LABS: ALT (SGPT) 36 U/L (8-55); AST (SGOT) 30 U/L (5-34); Alkaline Phosphatase 100 U/L (40-110); Anion Gap 14 mmol/L (10-20); BUN (Urea Nitrogen) 15 mg/dL (8.4-25.7); Bilirubin, Total 0.7 mg/dL (0.2-1.2); Calc. Creatinine Clearance 164 mL/min (70-130); Calcium 8.2 mg/dL (7.8-10.44); Carbon Dioxide 26 mmol/L (22-29); Chloride 105 mmol/L (98-107); Estimated GFR-MDRD Greater than 90; Globulin 2.3 g/dL (2.4-3.5); Glucose 101 mg/dL (70-105); Potassium 3.7 mmol/L (3.5-5.1); Protein, Total 5.3 g/dL (6.0-8.3); Sodium 141 mmol/L (136-145)
[2020-07-25 05:36] LABS: Eosinophils 3 % (0-10); Hemoglobin 12.6 g/dL (14.0-18.0); Lymphocytes 9 % (21-51); MDiff Complete? YES; Mean Corpuscular HGB CONC 35.2 g/dL (32.0-36.0); Mean Corpuscular Hemoglobin 30.7 pg (27.0-31.0); Mean Platelet Volume 8.5 fL (7.4-10.4); Monocytes 6 % (0-10); Neutrophil 82 % (42-75); Platelet Count 163 thou/uL (130-400); Platelet Morphology Comment Appears Adequate; RBC Distribution Width 11.6 % (11.5-14.5); RBC Morphology Normal; White Blood Cell (WBC) Count 7.9 thou/uL (4.8-10.8)
[2020-07-25] MEDS: Atorvastatin Calcium 40 MG TAB PO SCH (10:06)
[2020-07-25] MEDS: Enoxaparin Sodium 40 MG/0.4 ML SYRINGE SC SCH (10:06)
[2020-07-25] MEDS: Pantoprazole 40 MG VIAL IVP SCH (10:06)
--- NOTE | 2020-07-25 10:06 | PRG ---
DATE OF SERVICE: 07/25/2020 SUBJECTIVE: I was able to successfully extubate Mr. Bridges yesterday. He is awake, alert, and in no distress. He is on a Precedex drip, but does not appear to need that at this point. OBJECTIVE: VITAL SIGNS: Temperature is 98.8, pulse 81, blood pressure 142/70, and O2 saturation 98%. Total intake was 1088 mL, output 2167 mL. HEENT: Unremarkable. NECK: No adenopathy or JVD. CHEST: Clear to auscultation without wheezing or rhonchi. CARDIAC: S1, S2. Regular. ABDOMEN: Soft. EXTREMITIES: No edema. LABORATORY DATA: Sodium 141, potassium 3.7, chloride 105, CO2 of 26, BUN 15, creatinine 0.6, and glucose 101. White blood cell count 7.9, hematocrit 35.6, and platelet count 163. ASSESSMENT: 1. Status post out of hospital arrest. 2. Status post acute respiratory failure, requiring mechanical ventilation. 3. Left lower lobe pneumonia. 4. Urosepsis. PLAN: The patient has been consolidated down to one antibiotic. I will discontinue the Precedex drip. I will get him up in a chair and started diet. If he does well, then he can be transferred to the telemetry floor later this afternoon. Job ID: [id number]
--- NOTE | 2020-07-25 11:03 | RAD ---
PORTABLE CHEST: HISTORY: Pneumonia followup. COMPARISON: Prior day's exam. FINDINGS: Endotracheal and NG tubes have been removed. Heart size is enlarged. Postop sternotomy changes are present. Parenchymal lung changes appear similar to the prior exam. IMPRESSION: Interval removal of the endotracheal and NG tubes; otherwise, essentially stable exam. POS: OFF
--- NOTE | 2020-07-25 11:05 | PRG ---
DATE OF SERVICE: 07/25/2020 SUBJECTIVE: Mr. Bridges is extubated. He is sitting up and eating. He has no current complaints. He does not remember the events around his most recent hospitalization or syncopal event. OBJECTIVE: VITAL SIGNS: Blood pressure 142/70, pulse 71, temperature afebrile. LUNGS: Clear to auscultation. HEART: Regular rate and rhythm. ABDOMEN: Soft, nontender, nondistended. EXTREMITIES: No edema. PERTINENT LABORATORY DATA: Include hemoglobin 12.6. Creatinine 0.66. Peak troponin 0.0148. IMPRESSION: 1. Syncope. 2. Tobacco abuse. RECOMMENDATIONS: Etiology around recent syncopal event is unknown. He likely had underlying dehydration in addition to sepsis. His overall LVEF is normal. He denied chest pain or pressure prior to the event. At this point, we will continue with close observation. Monitor his blood pressure and heart rate closely. Given risk factors for underlying coronary artery disease, we will add low-dose aspirin. Otherwise, further recommendation per Dr. Sapphire Cole. Job ID: [id number]
[2020-07-25] MEDS ORDERED: Ondansetron PF 4 MG/2 ML Vial IVP PRN (12:19)
[2020-07-25] MEDS: Ibuprofen 200 MG TAB PO PRN ×2 (12:36→22:40)
--- NOTE | 2020-07-25 16:58 | PDOC.HOSPP ---
- Subjective Encounter Date: 07/24/20 Encounter Time: 12:30 Subjective: pt up in bed complains of cough and sputum production. - Objective Vital Signs & Weight: Vital Signs (12 hours) Temp Pulse Resp Pulse Ox 07/25/20 16:00 98.5 F 07/25/20 15:03 76 10 L 99 07/25/20 08:00 98.4 F 97 Weight Admit Weight 211 lb Weight 212 lb 8.41 oz Most Recent Monitor Data Heart Rate from ECG 76 NIBP 131/85 NIBP BP-Mean 100 Respiration from ECG 21 SpO2 97 I&O: 07/24/20 07/25/20 07/26/20 06:59 06:59 06:59 Intake Total 3792.1 1088.2 678 Output Total 3315 2167 1680 Balance 477.1 -1078.8 -1002 Result Diagrams: 07/25/20 04:25 07/25/20 04:25 Additional Labs: Accuchecks 07/25/20 07/25/20 07/25/20 16:44 11:43 04:38 POC Glucose 118 H 119 H 107 H Hospitalist ROS - Review of Systems Respiratory: reports: cough, sputum Cardiovascular: denies: chest pain, palpitations, orthopnea, paroxysmal noc. dyspnea, edema, light headedness, other Gastrointestinal: denies: nausea, vomiting, abdominal pain, diarrhea, constipat ion, melena, hematochezia, other Genitourinary: denies: dysuria, frequency, incontinence, hematuria, retention, other - Medication Medications: Active Medications Generic Name Dose Route Start Last Admin Trade Name Freq PRN Reason Stop Dose Admin Albuterol/Ipratropium 3 ml 07/25/20 12:47 07/25/20 15:03 Ipratropium/Albuterol Sulfate 3 Ml Neb NEB 3 ml Q4H PRN Administration SOB &/or Wheezing Atorvastatin Calcium 40 mg 07/22/20 09:00 07/25/20 10:06 Atorvastatin Calcium 40 Mg Tab PO 40 mg DAILY JOO Administration Enoxaparin Sodium 40 mg 07/21/20 09:00 07/25/20 10:06 Enoxaparin Sodium 40 Mg/0.4 Ml Syringe SC 40 mg 0900 JOO Administration Cefepime HCl 2 gm/ Sodium 100 mls @ 200 mls/hr 07/21/20 17:00 07/25/20 10:07 Chloride IVPB 100 mls 0100,0900,1700 JOO Administration Ibuprofen 400 mg 07/25/20 11:38 07/25/20 12:36 Ibuprofen 200 Mg Tab PO 400 mg TID PRN Administration Pain Insulin Human Regular 0 units 07/20/20 22:56 07/21/20 22:51 Insulin Regular 300 Units/3 Ml Vial SC 2 unit .MILD SLIDING SCALE PRN Administration Mild Correctional Scale Ondansetron HCl 4 mg 07/25/20 12:19 07/25/20 12:37 Ondansetron Pf 4 Mg/2 Ml Vial IVP 4 mg Q6H PRN Administration Nausea/Vomiting Pantoprazole Sodium 40 mg 07/21/20 09:00 07/25/20 10:06 Pantoprazole 40 Mg Vial IVP 40 mg DAILY JOO Administration Sodium Chloride 10 ml 07/21/20 09:00 07/25/20 10:06 Flush - Normal Saline 10 Ml Syringe IVF 10 ml Q12HR JOO Administration - Exam Heart: negative: RRR, no murmur, no gallops, no rubs, normal peripheral pulses, irregular, diminshed peripheral pulses, murmur present, II/IV, III/IV Respiratory: rhonchi Gastrointestinal: negative: soft, non-tender, non-distended, normal bowel soun ds, no palpable masses, no hepatomegaly, no splenomegaly, no bruit, no guarding, no rigidity, tender to palpation, distended, diminished bowl sounds, voluntary guarding Extremities: 1+ LE edema Hosp A/P (1) Acute respiratory failure with hypoxia Code(s): J96.01 - ACUTE RESPIRATORY FAILURE WITH HYPOXIA Status: Acute (2) Metabolic acidosis Code(s): E87.2 - ACIDOSIS Status: Acute (3) PEA (Pulseless electrical activity) Code(s): I46.9 - CARDIAC ARREST, CAUSE UNSPECIFIED Status: Acute (4) Pneumonia Code(s): J18.9 - PNEUMONIA, UNSPECIFIED ORGANISM Status: Acute (5) Septic shock Code(s): A41.9 - SEPSIS, UNSPECIFIED ORGANISM; R65.21 - SEVERE SEPSIS WITH SEPTIC SHOCK Status: Acute (6) DM2 (diabetes mellitus, type 2) Status: Acute (7) Hydronephrosis Code(s): N13.30 - UNSPECIFIED HYDRONEPHROSIS Status: Acute (8) HTN (hypertension) Code(s): I10 - ESSENTIAL (PRIMARY) HYPERTENSION Status: Acute - Plan Status post CPR with Rosc, 7 rounds of epinephrine. Patient was found in PEA arrest. He was at his brother's house where he syncopized. EMS was called and patient was intubated in the field. Unclear etiology of the PEA arrest. Patient was extubated 07/24. We will continue antibiotics. CT indicates subpleural consolidation with mild interstitial edema. No indication of pulmonary embolism. Patient has a history of atrial fibrillation in the past he was on anticoagulation. Currently sinus rhythm to sinus bradycardia. Left hydronephrosis cultures negative for UTI however we will continue antibiotics. Patient is COVID negative. Patient's renal function is normal.
--- NOTE | 2020-07-25 17:06 | PDOC.HOSPP ---
- Subjective Encounter Date: 07/25/20 Encounter Time: 10:30 Subjective: Patient up in bed denies any complaints. - Objective Vital Signs & Weight: Vital Signs (12 hours) Temp Pulse Resp Pulse Ox 07/25/20 16:00 98.5 F 07/25/20 15:03 76 10 L 99 07/25/20 08:00 98.4 F 97 Weight Admit Weight 211 lb Weight 212 lb 8.41 oz Most Recent Monitor Data Heart Rate from ECG 80 NIBP 159/69 NIBP BP-Mean 99 Respiration from ECG 19 SpO2 99 I&O: 07/24/20 07/25/20 07/26/20 06:59 06:59 06:59 Intake Total 3792.1 1088.2 778 Output Total 3315 2167 1680 Balance 477.1 -1078.8 -902 Result Diagrams: 07/25/20 04:25 07/25/20 04:25 Additional Labs: Accuchecks 07/25/20 07/25/20 07/25/20 16:44 11:43 04:38 POC Glucose 118 H 119 H 107 H Hospitalist ROS - Review of Systems Cardiovascular: denies: chest pain, palpitations, orthopnea, paroxysmal noc. dyspnea, edema, light headedness, other Gastrointestinal: denies: nausea, vomiting, abdominal pain, diarrhea, constipation, melena, hematochezia, other Genitourinary: denies: dysuria, frequency, incontinence, hematuria, retention, other - Medication Medications: Active Medications Generic Name Dose Route Start Last Admin Trade Name Freq PRN Reason Stop Dose Admin Albuterol/Ipratropium 3 ml 07/25/20 12:47 07/25/20 15:03 Ipratropium/Albuterol Sulfate 3 Ml Neb NEB 3 ml Q4H PRN Administration SOB &/or Wheezing Atorvastatin Calcium 40 mg 07/22/20 09:00 07/25/20 10:06 Atorvastatin Calcium 40 Mg Tab PO 40 mg DAILY JOO Administration Enoxaparin Sodium 40 mg 07/21/20 09:00 07/25/20 10:06 Enoxaparin Sodium 40 Mg/0.4 Ml Syringe SC 40 mg 0900 JOO Administration Cefepime HCl 2 gm/ Sodium 100 mls @ 200 mls/hr 07/21/20 17:00 07/25/20 10:07 Chloride IVPB 100 mls 0100,0900,1700 JOO Administration Ibuprofen 400 mg 07/25/20 11:38 07/25/20 12:36 Ibuprofen 200 Mg Tab PO 400 mg TID PRN Administration Pain Insulin Human Regular 0 units 07/20/20 22:56 07/21/20 22:51 Insulin Regular 300 Units/3 Ml Vial SC 2 unit .MILD SLIDING SCALE PRN Administration Mild Correctional Scale Ondansetron HCl 4 mg 07/25/20 12:19 07/25/20 12:37 Ondansetron Pf 4 Mg/2 Ml Vial IVP 4 mg Q6H PRN Administration Nausea/Vomiting Pantoprazole Sodium 40 mg 07/21/20 09:00 07/25/20 10:06 Pantoprazole 40 Mg Vial IVP 40 mg DAILY JOO Administration Sodium Chloride 10 ml 07/21/20 09:00 07/25/20 10:06 Flush - Normal Saline 10 Ml Syringe IVF 10 ml Q12HR JOO Administration - Exam Heart: negative: RRR, no murmur, no gallops, no rubs, normal peripheral pulses, irregular, diminshed peripheral pulses, murmur present, II/IV, III/IV Respiratory: rhonchi, wheezes Gastrointestinal: negative: soft, non-tender, non-distended, normal bowel sounds, no palpable masses, no hepatomegaly, no splenomegaly, no bruit, no guarding, no rigidity, tender to palpation, distended, diminished bowl sounds, voluntary guarding Hosp A/P (1) Acute respiratory failure with hypoxia Code(s): J96.01 - ACUTE RESPIRATORY FAILURE WITH HYPOXIA Status: Acute (2) Metabolic acidosis Code(s): E87.2 - ACIDOSIS Status: Acute (3) PEA (Pulseless electrical activity) Code(s): I46.9 - CARDIAC ARREST, CAUSE UNSPECIFIED Status: Acute (4) Pneumonia Code(s): J18.9 - PNEUMONIA, UNSPECIFIED ORGANISM Status: Acute (5) Septic shock Code(s): A41.9 - SEPSIS, UNSPECIFIED ORGANISM; R65.21 - SEVERE SEPSIS WITH SEPTIC SHOCK Status: Acute (6) DM2 (diabetes mellitus, type 2) Status: Acute (7) Hydronephrosis Code(s): N13.30 - UNSPECIFIED HYDRONEPHROSIS Status: Acute (8) HTN (hypertension) Code(s): I10 - ESSENTIAL (PRIMARY) HYPERTENSION Status: Acute - Plan Status post CPR with Rosc, 7 rounds of epinephrine. Patient was found in PEA arrest. He was at his brother's house where he syncopized. EMS was called and patient was intubated in the field. Unclear etiology of the PEA arrest. Patient was extubated 07/24. We will continue antibiotics. CT indicates subpleural consolidation with mild interstitial edema. No indication of pulmonary embolism. Patient has a history of atrial fibrillation in the past he was on anticoagulation. Currently sinus rhythm to sinus bradycardia. Left hydronephrosis cultures negative for UTI however we will continue antibiotics. Patient is COVID negative. Patient's renal function is normal. 07/25 significant rhonchi and wheezes noted we will start patient on some duo nebs. Echocardiogram done indicates EF of 60 to 65%. Unclear etiology again with PEA arrest. We will continue antibiotics for now. Patient is 2-1/2 pack a day smoker. Patient on aspirin and statin.
[2020-07-26] MEDS: Cefepime 2 GM in Sodium Chloride 0.9% 100 ML IVPB SCH ×3 (00:36→17:19)
[2020-07-26 04:51] LABS: Hemoglobin 12.9 g/dL (14.0-18.0); MDiff Complete? YES; Mean Corpuscular HGB CONC 35.3 g/dL (32.0-36.0); Mean Corpuscular Hemoglobin 30.7 pg (27.0-31.0); Mean Platelet Volume 8.2 fL (7.4-10.4); Platelet Count 186 thou/uL (130-400); RBC Distribution Width 11.6 % (11.5-14.5); Red Blood Cell (RBC) Count 4.19 mill/uL (4.70-6.10)
[2020-07-26 04:52] LABS: Band 2 % (5-11); Eosinophils 3 % (0-10); Lymphocytes 26 % (21-51); Metamyelocyte 1 % (0-0); Monocytes 7 % (0-10); Neutrophil 60 % (42-75); Platelet Morphology Comment Appears Adequate
[2020-07-26 05:01] LABS: ALT (SGPT) 69 U/L (8-55); AST (SGOT) 63 U/L (5-34); Albumin 3.3 g/dL (3.5-5.0); Alkaline Phosphatase 183 U/L (40-110); Anion Gap 15 mmol/L (10-20); BUN (Urea Nitrogen) 12 mg/dL (8.4-25.7); Bilirubin, Total 0.5 mg/dL (0.2-1.2); Calc. Creatinine Clearance 179 mL/min (70-130); Calcium 8.1 mg/dL (7.8-10.44); Carbon Dioxide 24 mmol/L (22-29); Chloride 107 mmol/L (98-107); Estimated GFR-MDRD Greater than 90; Globulin 2.4 g/dL (2.4-3.5); Glucose 110 mg/dL (70-105); Potassium 3.6 mmol/L (3.5-5.1); Protein, Total 5.7 g/dL (6.0-8.3); Sodium 142 mmol/L (136-145)
[2020-07-26] MEDS: Enoxaparin Sodium 40 MG/0.4 ML SYRINGE SC SCH (09:43)
[2020-07-26] MEDS: Aspirin 81 mg Enteric Coated Tablet PO SCH (09:44)
--- NOTE | 2020-07-26 10:53 | PRG ---
DATE OF SERVICE: 07/26/2020 SUBJECTIVE: The patient is improved in terms of confusion, has no complaints. OBJECTIVE: VITAL SIGNS: Temperature 97.8, pulse 78, respirations 22, O2 saturations of 93%, and blood pressure 154/80. HEENT: Unremarkable. NECK: No JVD. CHEST: Clear. CARDIAC: S1 and S2. Regular. ABDOMEN: Soft. EXTREMITIES: No edema. LABORATORY DATA: White blood cell count 7, hematocrit 36.5, and platelet count 186. Sodium 142, potassium 3.6, chloride 107, CO2 of 24, BUN 12, creatinine 0.6, and glucose 110. ASSESSMENT: 1. Status post respiratory failure requiring mechanical ventilation. 2. Status post out of hospital rest. 3. Left lower lobe pneumonia. 4. Urosepsis. PLAN: Basically rehabilitative issue at this point, he can be switched to oral antibiotics at any time. I have no further recommendations. Please recall if further assistance needed. Job ID: [id number]
[2020-07-26] MEDS: Insulin Regular 300 UNITS/3 ML VIAL SC PRN (12:28)
[2020-07-26] MEDS ORDERED: Fluticasone Propionate Nasal Spray 16 gm Bottle NASAL SCH (12:30)
--- NOTE | 2020-07-26 16:11 | ULT ---
RIGHT UPPER QUADRANT ULTRASOUND: History: Elevated LFTs FINDINGS: Real-time imaging of the right upper quadrant shows a nondistended gallbladder. There is suggestion o f some slight gallbladder wall thickening. The liver shows no focal abnormalities. There appears to b e increased mild echogenicity suggesting fatty change. It measures 16.8 cm in length. Trace free flui d is seen adjacent to the gallbladder. The common duct is 5 mm. Pancreas is obscured. Right kidney is normal in size and not obstructed. IMPRESSION: 1. Suggestion of some slight gallbladder wall thickening. There is trace ascites in this region noted . Technologist reports a negative ultrasound Rollins sign and no stones or sludge are identified. 2. Fatty change of the liver. POS: PILAR
--- NOTE | 2020-07-26 17:13 | PDOC.HOSPP ---
- Subjective Encounter Date: 07/26/20 Encounter Time: 10:15 Subjective: pt up in bed no complains - Objective Vital Signs & Weight: Vital Signs (12 hours) Temp Pulse Resp BP BP Pulse Ox 07/26/20 16:10 98.5 F 74 18 176/91 H 92 L 07/26/20 12:00 97.7 F 73 16 176/94 H 94 L 07/26/20 07:55 93 L 07/26/20 07:53 97.8 F 78 22 H 154/80 H 93 L Weight Admit Weight 211 lb 1.6 oz Weight 216 lb 14.4 oz Most Recent Monitor Data Heart Rate from ECG 80 NIBP 158/87 NIBP BP-Mean 110 Respiration from ECG 28 SpO2 98 I&O: 07/25/20 07/26/20 07/27/20 06:59 06:59 06:59 Intake Total 1088.2 1578 Output Total 2167 3430 Balance -1078.8 -1852 Result Diagrams: 07/26/20 04:12 07/26/20 04:12 Additional Labs: Accuchecks 07/26/20 07/26/20 07/26/20 16:55 10:46 06:24 POC Glucose 97 160 H 116 H 07/25/20 07/24/20 07/24/20 21:10 22:14 11:52 POC Glucose 116 H 120 H 147 H 07/23/20 22:21 POC Glucose 118 H Hospitalist ROS - Review of Systems Cardiovascular: denies: chest pain, palpitations, orthopnea, paroxysmal noc. dyspnea, edema, light headedness, other Gastrointestinal: denies: nausea, vomiting, abdominal pain, diarrhea, constipation, melena, hematochezia, other Genitourinary: denies: dysuria, frequency, incontinence, hematuria, retention, other - Medication Medications: Active Medications Generic Name Dose Route Start Last Admin Trade Name Freq PRN Reason Stop Dose Admin Albuterol/Ipratropium 3 ml 07/25/20 12:47 07/25/20 15:03 Ipratropium/Albuterol Sulfate 3 Ml Neb NEB 3 ml Q4H PRN Administration SOB &/or Wheezing Aspirin 81 mg 07/26/20 09:00 07/26/20 09:44 Aspirin 81 Mg Enteric Coated Tablet PO 81 mg DAILY JOO Administration Atorvastatin Calcium 40 mg 07/22/20 09:00 07/25/20 10:06 Atorvastatin Calcium 40 Mg Tab PO 40 mg DAILY JOO Administration Enoxaparin Sodium 40 mg 07/21/20 09:00 07/26/20 09:43 Enoxaparin Sodium 40 Mg/0.4 Ml Syringe SC 40 mg 0900 JOO Administration Cefepime HCl 2 gm/ Sodium 100 mls @ 200 mls/hr 07/21/20 17:00 07/26/20 09:44 Chloride IVPB 100 mls 0100,0900,1700 JOO Administration Ibuprofen 400 mg 07/25/20 11:38 07/25/20 22:40 Ibuprofen 200 Mg Tab PO 400 mg TID PRN Administration Pain Insulin Human Regular 0 units 07/20/20 22:56 07/26/20 12:28 Insulin Regular 300 Units/3 Ml Vial SC 2 unit .MILD SLIDING SCALE PRN Administration Mild Correctional Scale Ondansetron HCl 4 mg 07/25/20 12:19 07/25/20 12:37 Ondansetron Pf 4 Mg/2 Ml Vial IVP 4 mg Q6H PRN Administration Nausea/Vomiting Pantoprazole Sodium 40 mg 07/26/20 09:00 07/26/20 09:44 Pantoprazole 40 Mg Tab PO 40 mg DAILY JOO Administration Sodium Chloride 10 ml 07/21/20 09:00 07/26/20 10:14 Flush - Normal Saline 10 Ml Syringe IVF 10 ml Q12HR JOO Administration - Exam Neck: negative: supple, symmetric, no JVD, no thyromegaly, no lymphadenopathy, no carotid bruit, JVD Heart: negative: RRR, no murmur, no gallops, no rubs, normal peripheral pulses, irregular, diminshed peripheral pulses, murmur present, II/IV, III/IV Respiratory: negative: CTAB, no wheezes, no rales, no ronchi, normal chest expansion, no tachypnea, normal percussion, rales, rhonchi, tachypneic, wheezes Hosp A/P (1) Acute respiratory failure with hypoxia Code(s): J96.01 - ACUTE RESPIRATORY FAILURE WITH HYPOXIA Status: Acute (2) Metabolic acidosis Code(s): E87.2 - ACIDOSIS Status: Acute (3) PEA (Pulseless electrical activity) Code(s): I46.9 - CARDIAC ARREST, CAUSE UNSPECIFIED Status: Acute (4) Pneumonia Code(s): J18.9 - PNEUMONIA, UNSPECIFIED ORGANISM Status: Acute (5) Septic shock Code(s): A41.9 - SEPSIS, UNSPECIFIED ORGANISM; R65.21 - Status: Acute (6) DM2 (diabetes mellitus, type 2) Status: Acute (7) Hydronephrosis Code(s): N13.30 - Status: Acute (8) HTN (hypertension) Code(s): I10 - Status: Acute - Plan Status post CPR with Rosc, 7 rounds of epinephrine. Patient was found in PEA arrest. He was at his brother's house where he syncopized. EMS was called and patient was intubated in the field. Unclear etiology of the PEA arrest. Patient was extubated 07/24. We will continue antibiotics. CT indicates subpleural consolidation with mild interstitial edema. No indication of pulmonary embolism. Patient has a history of atrial fibrillation in the past he was on anticoagulation. Currently sinus rhythm to sinus bradycardia. Left hydronephrosis cultures negative for UTI however we will continue antibiotics. Patient is COVID negative. Patient's renal function is normal. 07/25 significant rhonchi and wheezes noted we will start patient on some duo nebs. Echocardiogram done indicates EF of 60 to 65%. Unclear etiology again with PEA arrest. We will continue antibiotics for now. Patient is 2-1/2 pack a day smoker. Patient on aspirin and statin. 07/26 patient up in bed no complaints. Will get physical therapy to see the patient. Mild elevated LFTs. Right upper quadrant ultrasound indicates some gall bladder wall thickening.
[2020-07-26] MEDS ORDERED: Amlodipine 10 MG TAB PO SCH (17:30)
[2020-07-27] MEDS: Cefepime 2 GM in Sodium Chloride 0.9% 100 ML IVPB SCH ×3 (01:30→16:31)
[2020-07-27 04:53] LABS: Hemoglobin 13.5 g/dL (14.0-18.0); Hypochromia SLIGHT = 6-15 cells (100X) (0-5/hpf); Lymphocytes 18 % (21-51); MDiff Complete? YES; Mean Corpuscular HGB CONC 34.5 g/dL (32.0-36.0); Mean Corpuscular Hemoglobin 30.1 pg (27.0-31.0); Mean Corpuscular Volume 87.4 fL (78.0-98.0); Mean Platelet Volume 7.9 fL (7.4-10.4); Monocytes 4 % (0-10); Neutrophil 78 % (42-75); Platelet Count 219 thou/uL (130-400); RBC Distribution Width 11.7 % (11.5-14.5); Red Blood Cell (RBC) Count 4.49 mill/uL (4.70-6.10); White Blood Cell (WBC) Count 9.7 thou/uL (4.8-10.8)
[2020-07-27 05:00] LABS: ALT (SGPT) 119 U/L (8-55); AST (SGOT) 69 U/L (5-34); Albumin 3.7 g/dL (3.5-5.0); Alkaline Phosphatase 227 U/L (40-110); Anion Gap 13 mmol/L (10-20); BUN (Urea Nitrogen) 7 mg/dL (8.4-25.7); Bilirubin, Total 0.6 mg/dL (0.2-1.2); Calc. Creatinine Clearance 170 mL/min (70-130); Calcium 8.9 mg/dL (7.8-10.44); Carbon Dioxide 28 mmol/L (22-29); Cardiac Risk 4.4 (Less than 4.5); Chloride 101 mmol/L (98-107); Cholesterol 144 mg/dl (< 200 Desired); Estimated GFR-MDRD Greater than 90; Globulin 2.7 g/dL (2.4-3.5); Glucose 125 mg/dL (70-105); HDL Cholesterol 33 mg/dL (>60 Neg Risk); LDL Cholesterol, Calculated 84 mg/dL; Protein, Total 6.4 g/dL (6.0-8.3); Sodium 139 mmol/L (136-145); Triglycerides 137 mg/dL (Less than 150)
[2020-07-27] MEDS ORDERED: Potassium Chloride 20 MEQ TAB PO SCH ×4 (06:30→12:00)
[2020-07-27] MEDS: Enoxaparin Sodium 40 MG/0.4 ML SYRINGE SC SCH (08:51)
[2020-07-27] MEDS: Aspirin 81 mg Enteric Coated Tablet PO SCH (08:51)
[2020-07-27] MEDS: Amlodipine 10 MG TAB PO SCH (08:51)
[2020-07-27] MEDS: Fluticasone Propionate Nasal Spray 16 gm Bottle NASAL SCH (08:52)
[2020-07-27 09:14] LABS: HBSAg Index 0.14 S/CO (0-0.99); Hep A IgM AB Non-Reactive (NonReactive); Hep A IgM S/CO 0.15 S/CO (0-0.79); Hep B Surf Ag Non-Reactive S/CO (NonReactive); Hep C IgG Ab Non-Reactive (NonReactive); Hep C Index 0.09 S/CO (0-0.79); Hepatitis B Core IgM Abs Non-Reactive (NonReactive)
[2020-07-27] MEDS ORDERED: Magnesium 2 GM/50 ML 2 GM in Premix Bag 1 BAG IVPB SCH (09:30)
--- NOTE | 2020-07-27 15:40 | NM ---
EXAM: NM Hida Scan W Drug PROVIDED CLINICAL HISTORY: Elevated liver function tests and right upper quadrant abdominal pain. COMPARISON: None FINDINGS: There is normal uptake and excretion of radiotracer by the liver. Faint gallbladder activity is visua lized by 17 minutes with increasing activity in the gallbladder imaging up to 55 minutes. Definitive bowel activity is not visualized. After 55 minutes of imaging, CCK analog was administered intravenously. Bowel activity is visualized on initial imaging after CCK analog administration. A gallbladder ejection fraction of 8% was obtained. Normal gallbladder ejection fraction is greater darío n 33%. IMPRESSION: 1. Decreased gallbladder ejection fraction suggesting biliary dyskinesis or chronic cholecystitis. 2. No evidence of a cystic or common duct obstruction.
[2020-07-27] MEDS: Ibuprofen 200 MG TAB PO PRN (16:31)
--- NOTE | 2020-07-27 16:35 | PDOC.HOSPP ---
- Subjective Encounter Date: 07/27/20 Encounter Time: 08:55 Subjective: Patient up in bed denies any complaints. - Objective Vital Signs & Weight: Vital Signs (12 hours) Temp Pulse Pulse Pulse Resp BP BP 07/27/20 15:05 97.9 F 77 16 07/27/20 12:05 98.3 F 73 16 07/27/20 11:06 66 73 139/88 139/67 07/27/20 07:25 97.9 F 66 16 BP BP Pulse Ox 07/27/20 15:05 169/81 H 98 07/27/20 12:05 162/74 H 98 07/27/20 11:06 07/27/20 07:25 163/87 H 94 L Weight Admit Weight 211 lb 1.6 oz Weight 216 lb 12.312 oz Most Recent Monitor Data Heart Rate from ECG 80 NIBP 158/87 NIBP BP-Mean 110 Respiration from ECG 28 SpO2 98 I&O: 07/26/20 07/27/20 07/28/20 06:59 06:59 06:59 Intake Total 1578 1050 240 Output Total 3430 1975 Balance -3412 -111 240 Result Diagrams: 07/27/20 03:56 07/27/20 03:56 Additional Labs: Accuchecks 07/27/20 07/27/20 07/27/20 11:31 05:47 01:18 POC Glucose 138 H 124 H 124 H 07/26/20 07/26/20 20:00 16:55 POC Glucose 175 H 97 Hospitalist ROS - Review of Systems Respiratory: denies: cough, dry, shortness of breath, hemoptysis, SOB with excertion, pleuritic pain, sputum, wheezing, other Cardiovascular: denies: chest pain, palpitations, orthopnea, paroxysmal noc. dyspnea, edema, light headedness, other Gastrointestinal: denies: nausea, vomiting, abdominal pain, diarrhea, constipation, melena, hematochezia, other - Medication Medications: Active Medications Generic Name Dose Route Start Last Admin Trade Name Freq PRN Reason Stop Dose Admin Albuterol/Ipratropium 3 ml 07/25/20 12:47 07/25/20 15:03 Ipratropium/Albuterol Sulfate 3 Ml Neb NEB 3 ml Q4H PRN Administration SOB &/or Wheezing Amlodipine Besylate 10 mg 07/27/20 09:00 07/27/20 08:51 Amlodipine 10 Mg Tab PO 10 mg DAILY JOO Administration Aspirin 81 mg 07/26/20 09:00 07/27/20 08:51 Aspirin 81 Mg Enteric Coated Tablet PO 81 mg DAILY JOO Administration Atorvastatin Calcium 40 mg 07/22/20 09:00 07/25/20 10:06 Atorvastatin Calcium 40 Mg Tab PO 40 mg DAILY JOO Administration Enoxaparin Sodium 40 mg 07/21/20 09:00 07/27/20 08:51 Enoxaparin Sodium 40 Mg/0.4 Ml Syringe SC 40 mg 0900 JOO Administration Fluticasone Propionate 1 gm 07/27/20 09:00 07/27/20 08:52 Fluticasone Propionate Nasal [place] 16 Gm Bottle NASAL 1 spr DAILY JOO Administration Cefepime HCl 2 gm/ Sodium 100 mls @ 200 mls/hr 07/21/20 17:00 07/27/20 16:31 Chloride IVPB 100 mls 0100,0900,1700 JOO Administration Ibuprofen 400 mg 07/25/20 11:38 07/27/20 16:31 Ibuprofen 200 Mg Tab PO 400 mg TID PRN Administration Pain Insulin Human Regular 0 units 07/20/20 22:56 07/26/20 12:28 Insulin Regular 300 Units/3 Ml Vial SC 2 unit .MILD SLIDING SCALE PRN Administration Mild Correctional Scale Ondansetron HCl 4 mg 07/25/20 12:19 07/25/20 12:37 Ondansetron Pf 4 Mg/2 Ml Vial IVP 4 mg Q6H PRN Administration Nausea/Vomiting Pantoprazole Sodium 40 mg 07/26/20 09:00 07/27/20 08:51 Pantoprazole 40 Mg Tab PO 40 mg DAILY JOO Administration Sodium Chloride 10 ml 07/21/20 09:00 07/27/20 08:53 Flush - Normal Saline 10 Ml Syringe IVF 10 ml Q12HR JOO Administration - Exam Heart: negative: RRR, no murmur, no gallops, no rubs, normal peripheral pulses, irregular, diminshed peripheral pulses, murmur present, II/IV, III/IV Respiratory: negative: CTAB, no wheezes, no rales, no ronchi, normal chest expansion, no tachypnea, normal percussion, rales, rhonchi, tachypneic, wheezes Gastrointestinal: soft, normal bowel sounds, tender to palpation Extremities: 1+ LE edema Hosp A/P (1) Acute respiratory failure with hypoxia Code(s): J96.01 - ACUTE RESPIRATORY FAILURE WITH HYPOXIA Status: Acute (2) Metabolic acidosis Code(s): E87.2 - ACIDOSIS Status: Acute (3) PEA (Pulseless electrical activity) Code(s): I46.9 - CARDIAC ARREST, CAUSE UNSPECIFIED Status: Acute (4) Pneumonia Code(s): J18.9 - PNEUMONIA, UNSPECIFIED ORGANISM Status: Acute (5) Septic shock Code(s): A41.9 - SEPSIS, UNSPECIFIED ORGANISM; R65.21 - SEVERE SEPSIS WITH SEPTIC SHOCK Status: Acute (6) DM2 (diabetes mellitus, type 2) Status: Acute (7) Hydronephrosis Code(s): N13.30 - UNSPECIFIED HYDRONEPHROSIS Status: Acute (8) HTN (hypertension) Code(s): I10 - ESSENTIAL (PRIMARY) HYPERTENSION Status: Acute - Plan Status post CPR with Rosc, 7 rounds of epinephrine. Patient was found in PEA arrest. He was at his brother's house where he syncopized. EMS was called and patient was intubated in the field. Unclear etiology of the PEA arrest. Patient was extubated 07/24. We will continue antibiotics. CT indicates subpleural consolidation with mild interstitial edema. No indication of pulmonary embolism. Patient has a history of atrial fibrillation in the past he was on anticoagulation. Currently sinus rhythm to sinus bradycardia. Left hydronephrosis cultures negative for UTI however we will continue antibiotics. Patient is COVID negative. Patient's renal function is normal. 07/25 significant rhonchi and wheezes noted we will start patient on some duo nebs. Echocardiogram done indicates EF of 60 to 65%. Unclear etiology again with PEA arrest. We will continue antibiotics for now. Patient is 2-1/2 pack a day smoker. Patient on aspirin and statin. 07/26 patient up in bed no complaints. Will get physical therapy to see the patient. Mild elevated LFTs. Right upper quadrant ultrasound indicates some gall bladder wall thickening. 07/27 patient's LFTs are trending upwards. We will get a HIDA scan. Patient has some mild tenderness on palpation of the right upper quadrant. However he denies any nausea vomiting. Patient has support at home and most likely will be discharged home. Patient has been advised against smoking cessation. To new antibiotics for now if his LFTs continue to worsen will get surgery to evaluate him. Hepatitis panel sent. His atorvastatin is on hold.
[2020-07-27] MEDS: Insulin Regular 300 UNITS/3 ML VIAL SC PRN (18:30)
[2020-07-28] MEDS: Cefepime 2 GM in Sodium Chloride 0.9% 100 ML IVPB SCH (02:45)
[2020-07-28] MEDS: Ibuprofen 200 MG TAB PO PRN ×2 (02:45→09:09)
[2020-07-28 04:09] LABS: #Basophils 0.1 thou/uL (0.0-0.2); #Eosinphils 0.4 thou/uL (0.0-0.7); #Lymphocytes 2.4 thou/uL (1.20-3.40); #Neutrophils 4.9 thou/uL (1.40-6.50); %Basophils 0.7 % (0.0-1.0); %Eosinophils 4.2 % (0.0-10.0); %Lymphocytes 27.4 % (21.0-51.0); %Neutrophils 56.6 % (42.0-75.0); Hemoglobin 13.6 g/dL (14.0-18.0); Mean Corpuscular HGB CONC 35.5 g/dL (32.0-36.0); Mean Corpuscular Volume 87.4 fL (78.0-98.0); Mean Platelet Volume 7.6 fL (7.4-10.4); Platelet Count 258 thou/uL (130-400); RBC Distribution Width 11.9 % (11.5-14.5); Red Blood Cell (RBC) Count 4.38 mill/uL (4.70-6.10); White Blood Cell (WBC) Count 8.7 thou/uL (4.8-10.8)
[2020-07-28 04:34] LABS: ALT (SGPT) 93 U/L (8-55); AST (SGOT) 42 U/L (5-34); Albumin 3.8 g/dL (3.5-5.0); Alkaline Phosphatase 198 U/L (40-110); Anion Gap 14 mmol/L (10-20); BUN (Urea Nitrogen) 13 mg/dL (8.4-25.7); Bilirubin, Total 0.5 mg/dL (0.2-1.2); Calc. Creatinine Clearance 154 mL/min (70-130); Calcium 8.8 mg/dL (7.8-10.44); Carbon Dioxide 26 mmol/L (22-29); Chloride 102 mmol/L (98-107); Estimated GFR-MDRD Greater than 90; Globulin 2.6 g/dL (2.4-3.5); Glucose 163 mg/dL (70-105); Potassium 3.7 mmol/L (3.5-5.1); Protein, Total 6.4 g/dL (6.0-8.3); Sodium 138 mmol/L (136-145)
[2020-07-28] MEDS ORDERED: Amoxicillin/Potassium Clav 875 MG TAB PO SCH (09:00)
[2020-07-28] MEDS: Aspirin 81 mg Enteric Coated Tablet PO SCH (09:03)
[2020-07-28] MEDS: Amlodipine 10 MG TAB PO SCH (09:04)
[2020-07-28] MEDS: Enoxaparin Sodium 40 MG/0.4 ML SYRINGE SC SCH (09:05)
[2020-07-28] MEDS: Atorvastatin Calcium 40 MG TAB PO SCH (09:09)
[2020-07-28] MEDS: Fluticasone Propionate Nasal Spray 16 gm Bottle NASAL SCH (09:10)
[2020-07-28] MEDS ORDERED: Polyethylene Glycol 3350 17 GM Packet PO SCH (11:30)
[2020-07-28] MEDS ORDERED: Senokot S 8.6-50 MG TAB PO SCH (11:30)
[2020-07-28 12:39] VITALS: BP 143/80; TEMP 98.8
[2020-07-28] MEDS: Insulin Regular 300 UNITS/3 ML VIAL SC PRN (12:42)
[2020-07-28] MEDS ORDERED: Magnesium 2 GM/50 ML 2 GM in Premix Bag 1 BAG IVPB SCH (13:00)
[2020-07-28 13:51] VITALS: BMI 32.9
--- NOTE | 2020-07-28 16:55 | EKG ---
Test Reason : Blood Pressure : / mmHG Vent. Rate : 116 BPM Atrial Rate : 277 BPM P-R Int : 000 ms QRS Dur : 106 ms QT Int : 364 ms P-R-T Axes : 000 081 -33 degrees QTc Int : 505 ms Atrial fibrillation with rapid ventricular response with premature ventricular or aberrantly conducte d complexes Septal infarct , age undetermined Abnormal ECG Confirmed by KRYS MOFFETT, RODOLFO ([id number]), assignment editor ALEXA ALEXANDER ([id number]) on 07/28/2020 4:53:48 PM Referred By: Confirmed By:RODOLFO MARCANO MD
--- NOTE | 2020-07-30 00:45 | DIS ---
DATE OF ADMISSION: 07/20/2020 DATE OF DISCHARGE: 07/28/2020 DISCHARGE DIAGNOSES: 1. Ima-nj-mndeacop pulseless electrical activity arrest, unclear etiology. 2. Metabolic acidosis. 3. Acute respiratory failure with hypoxia. 4. Pneumonia. 5. Septic shock. 6. Diabetes. 7. Hydronephrosis. 8. Hypertension. HOSPITAL COURSE: The patient is a very pleasant 60-year-old, who has a history of smoking, who came in after he syncopized at home. He was found to be in a PEA arrest and apparently underwent CPR with ROSC. Seven rounds of epi was administered to this patient. The patient was intubated in the field. His PEA arrest cause was unclear. He was seen by Cardiology and Pulmonology. He initially was put on broad-spectrum antibiotics. A CT dissection did not indicate any acute pulmonary embolism. However, he does have some diffuse ground-glass opacity with the lung parenchyma suggesting of edema or infiltrates. He also had some emphysematous changes. He had a small tiny foci of possible loculated air in the pleural space. He had also demonstrated some ulceration involving the medial aortic arch and a saccular aneurysm, which has decreased in size. Also noted mild left-sided hydronephrosis. He then had a renal ultrasound which indicated fatty change in the liver and some edema in the gallbladder, mild left-sided hydronephrosis. He initially had acute kidney injury. However, his creatinine was back at baseline. He had no problems urinating. The patient underwent an echocardiogram, which indicated an EF of 65% of 70% with diastolic dysfunction and trace tricuspid regurgitation. He was seen by Cardiology. No intervention was noted for this patient. He was found to be significantly dehydrated and in acidosis when he initially arrived to the hospital. The patient had some elevated LFTs. At this time, an abdominal ultrasound was done, which indicated some slight gallbladder wall thickening that, and there was trace ascites in the region noted. Fatty liver changes were noted. His statin was held. He also underwent a hepatobiliary scan since he had again increased amount of LFTs. The HIDA scan indicated decreased gallbladder ejection fraction suggesting of biliary dyskinesia and chronic cholecystitis. However, the patient had no abdominal pain on palpation. No evidence of cystic or common bile duct obstruction. His LFTs continued to trend downward. I recommended holding off on his statin for now. He will follow up with his primary to see if he can resume the statin once his labs are evaluated. His hepatitis panel was negative. His alcohol level was also normal. The patient recovered well. He has support at home. He will be discharged home. Due to insurance issues, we were unable to send him to [facility]. However, he was able to get up and ambulate without any difficulties. PHYSICAL EXAMINATION: VITAL SIGNS: Temperature 98.8, 74, 20, 98% on room air, and 143/80. GENERAL: He is awake, alert, and oriented x3. Does not appear in distress. CARDIOVASCULAR: S1 and S2 present. No murmurs, rubs, or gallops. MEDICATIONS: He is going to be on; 1. Flexeril as needed. 2. Metformin a 1000 daily. 3. Glimepiride 4 mg b.i.d. 4. Lisinopril 20 mg daily. 5. Aspirin 81 mg daily. 6. Augmentin 875 b.i.d. RECOMMENDATIONS: I recommended him to follow up with Cardiology and with his primary care doctor and also to stay away from smoking. Job ID: [id number]
== END 2020-07-28 15:55 | disposition home or self-care (01) | DRG 871 ==
LOC: ERS 19:40 → CCU 21:05 → 2NO 07-26 00:20
PROVIDERS: ADMIT Internal Medicine; ATTEND Internal Medicine
PROC: 5A1945Z Respiratory Ventilation, 24-96 Consecutive Hours (ICD-10-PCS; principal; 2020-07-20)
PROC: 3E033XZ Introduction of Vasopressor into Peripheral Vein, Percutaneous Approach (ICD-10-PCS; 2020-07-20)
PROC: 02HV33Z Insertion of Infusion Device into Superior Vena Cava, Percutaneous Approach (ICD-10-PCS; 2020-07-20)
PROC: 0BH17EZ Insertion of Endotracheal Airway into Trachea, Via Natural or Artificial Opening (ICD-10-PCS; 2020-07-20)
DX: A41.9 Sepsis, unspecified organism (principal); R65.21 Severe sepsis with septic shock; J96.01 Acute respiratory failure with hypoxia; J18.9 Pneumonia, unspecified organism; R40.2312 Coma scale, best motor response, none, at arrival to emergency department; R40.2112 Coma scale, eyes open, never, at arrival to emergency department; R40.2212 Coma scale, best verbal response, none, at arrival to emergency department; R57.0 Cardiogenic shock; I46.8 Cardiac arrest due to other underlying condition; E87.2 Acidosis; N13.6 Pyonephrosis; E11.9 Type 2 diabetes mellitus without complications; I10 Essential (primary) hypertension; Z20.828 Contact with and (suspected) exposure to other viral communicable diseases; E78.5 Hyperlipidemia, unspecified; J43.9 Emphysema, unspecified; D47.3 Essential (hemorrhagic) thrombocythemia; E78.00 Pure hypercholesterolemia, unspecified; I48.0 Paroxysmal atrial fibrillation; E86.0 Dehydration; Z87.891 Personal history of nicotine dependence; Z79.899 Other long term (current) drug therapy; Z79.84 Long term (current) use of oral hypoglycemic drugs
CPT/HCPCS: 36415; 36416; 36556; 51702; 70450; 71045; 71275; 72191; 74175; 76705; 76770; 78227; 80053; 80061; 80074; 80202; 80306; 80307; 81003; 81015; 82140; 82550; 82553; 82805; 83605; 83690; 83735; 83880; 84100; 84145; 84443; 84484; 85007; 85025; 85027; 85379; 85610; 85730; 87040; 87070; 87086; 87205; 93005; 93306; 94002; 94003; 94640; 96365; 96366; 96367; 96368; 96374; 96375; 96376; 99292; A9537; C9113; J0692; J1650; J1815; J1940; J1956; J2060; J2405; J2704; J3010; J3370; J3475; J3480; J3490; J7030; J7050; J7070; J7620; Q9967; U0002

== ENCOUNTER 2021-01-18 13:34 | Inpatient (IN) | payer SELFPAY ==
[2021-01-18] MEDS ORDERED: Lidocaine 4% Cream 5 GM TUBE w/ Tegaderm ONE (15:49)
[2021-01-18 16:10] LABS: #Eosinphils 0.1 thou/uL (0.0-0.7); #Lymphocytes 2.9 thou/uL (1.20-3.40); #Monocytes 0.6 thou/uL (0.11-0.59); #Neutrophils 7.6 thou/uL (1.40-6.50); %Basophils 0.3 % (0.0-1.0); %Eosinophils 1.3 % (0.0-10.0); %Lymphocytes 25.7 % (21.0-51.0); %Monocytes 5.5 % (0.0-10.0); %Neutrophils 67.3 % (42.0-75.0); Mean Corpuscular HGB CONC 34.2 g/dL (32.0-36.0); Mean Corpuscular Volume 87.6 fL (78.0-98.0); Mean Platelet Volume 7.4 fL (7.4-10.4); Platelet Count 209 thou/uL (130-400); RBC Distribution Width 12.7 % (11.5-14.5); Red Blood Cell (RBC) Count 5.67 mill/uL (4.70-6.10); White Blood Cell (WBC) Count 11.3 thou/uL (4.8-10.8)
[2021-01-18 16:31] LABS: ALT (SGPT) 63 U/L (8-55); AST (SGOT) 26 U/L (5-34); Albumin 4.1 g/dL (3.5-5.0); Alkaline Phosphatase 125 U/L (40-110); Anion Gap 11 mmol/L (10-20); BUN (Urea Nitrogen) 13 mg/dL (8.4-25.7); Bilirubin, Total 0.6 mg/dL (0.2-1.2); Calc. Creatinine Clearance 0 mL/min (70-130); Calcium 9.5 mg/dL (7.8-10.44); Carbon Dioxide 30 mmol/L (22-29); Chloride 102 mmol/L (98-107); Globulin 3.1 g/dL (2.4-3.5); Glucose 155 mg/dL (70-105); Potassium 4.3 mmol/L (3.5-5.1); Protein, Total 7.2 g/dL (6.0-8.3); Sodium 139 mmol/L (136-145)
[2021-01-18] MEDS ORDERED: Boostrix 0.5 ML (Tdap) VIAL ONE (18:41)
[2021-01-18 18:57] LABS: SARS-CoV-2 NAA Rapid Test Not Detected (NotDetected)
[2021-01-18] MEDS ORDERED: Bupivacaine PF 0.5% 30 ML VIAL ONE (19:27)
[2021-01-18] MEDS ORDERED: Bacitracin Zinc Ointment 30 gm TUBE ONE (19:28)
[2021-01-18] MEDS ORDERED: Sodium Chloride 0.9% 30 ML ONE (19:28)
[2021-01-18] MEDS ORDERED: Fentanyl 100 MCG/2 ML VIAL ONE ×3 (20:35→22:22)
[2021-01-18] MEDS ORDERED: Lidocaine 1% PF 5 ML VIAL ONE (21:00)
[2021-01-18] MEDS ORDERED: Ondansetron PF 4 MG/2 ML Vial ONE (21:00)
[2021-01-18] MEDS ORDERED: PHENYLEPHRINE-NS 100 MCG/ML 10 ML SYRINGE ONE (21:00)
[2021-01-18] MEDS ORDERED: ePHEDrine 50 MG/ML VIAL ONE (21:00)
[2021-01-18] MEDS ORDERED: Dexamethasone 20 MG/5 ML VIAL ONE (21:00)
[2021-01-18] MEDS ORDERED: PROPOFOL 200 MG/20 ML VIAL ONE (21:00)
[2021-01-18] MEDS ORDERED: Promethazine HCl 25 MG/ML VIAL SLOW IVP PRN (22:04)
[2021-01-18] MEDS ORDERED: Ondansetron HCl/PF 4 MG/2 ML Vial IVP PRN (22:04)
[2021-01-18] MEDS ORDERED: Meperidine HCl/PF 25 MG/ML VIAL IM PRN (23:05)
[2021-01-18] MEDS ORDERED: Promethazine HCl 25 MG/ML VIAL IM PRN (23:06)
[2021-01-18] MEDS ORDERED: HYDROcodone/Acetaminophen 7.5/325 mg Tablet PO PRN (23:07)
[2021-01-18] MEDS: VANCOMYCIN 1.25 GM/250 ML BAG 1.25 GM in Premix Bag 1 BAG IVPB SCH (23:29)
[2021-01-18] MEDS: Morphine 4 MG/ML VIAL SLOW IVP PRN (23:38)
[2021-01-19 00:02] VITALS: BMI 30.2
[2021-01-19] MEDS ORDERED: Dextrose 50% Abboject 50 ML SYRINGE SLOW IVP PRN (00:34)
[2021-01-19] MEDS ORDERED: Dextrose 5% in Water 1,000 ML IV PRN (00:34)
[2021-01-19] MEDS: HYDROcodone/Acetaminophen 7.5/325 mg Tablet PO PRN ×2 (05:15→09:13)
[2021-01-19 05:23] LABS: #Monocytes 0.3 thou/uL (0.11-0.59); #Neutrophils 9.1 thou/uL (1.40-6.50); %Basophils 0.1 % (0.0-1.0); %Eosinophils 0.3 % (0.0-10.0); %Monocytes 2.4 % (0.0-10.0); %Neutrophils 87.3 % (42.0-75.0); Hemoglobin 15.2 g/dL (14.0-18.0); Mean Corpuscular HGB CONC 33.5 g/dL (32.0-36.0); Mean Corpuscular Hemoglobin 29.6 pg (27.0-31.0); Mean Corpuscular Volume 88.3 fL (78.0-98.0); Mean Platelet Volume 7.8 fL (7.4-10.4); Platelet Count 184 thou/uL (130-400); RBC Distribution Width 12.5 % (11.5-14.5); Red Blood Cell (RBC) Count 5.14 mill/uL (4.70-6.10); White Blood Cell (WBC) Count 10.4 thou/uL (4.8-10.8)
[2021-01-19] MEDS ORDERED: FLU VACC QS2020-21(6MOS UP)/PF 60 MCG/0.5 ML SYRINGE IM ONE (09:00)
[2021-01-19] MEDS: Atenolol 25 MG TAB PO SCH (09:12)
[2021-01-19] MEDS: Lisinopril 20 MG TAB PO SCH (09:13)
[2021-01-19] MEDS: Morphine 4 MG/ML VIAL SLOW IVP PRN ×3 (11:50→22:41)
[2021-01-19] MEDS: VANCOMYCIN 1.25 GM/250 ML BAG 1.25 GM in Premix Bag 1 BAG IVPB SCH ×2 (11:54→23:34)
[2021-01-19] MEDS: Glimepiride 4 MG TAB PO SCH (17:50)
[2021-01-19] MEDS ORDERED: Pravastatin Sodium 40 MG TAB PO SCH (21:00)
[2021-01-19] MEDS: Atorvastatin Calcium 10 MG TAB PO SCH (21:25)
[2021-01-19] MEDS: metFORMIN 500 MG TAB PO SCH (21:25)
[2021-01-19] MEDS: HumaLOG 300 UNITS/3 ML VIAL SC PRN (21:26)
[2021-01-20] MEDS: Morphine 4 MG/ML VIAL SLOW IVP PRN ×4 (03:41→23:45)
[2021-01-20] MEDS: HumaLOG 300 UNITS/3 ML VIAL SC PRN ×2 (05:55→21:39)
[2021-01-20] MEDS: Atenolol 25 MG TAB PO SCH (08:51)
[2021-01-20] MEDS: Glimepiride 4 MG TAB PO SCH ×2 (08:54→16:53)
[2021-01-20] MEDS: Lisinopril 20 MG TAB PO SCH (08:54)
[2021-01-20] MEDS: metFORMIN 500 MG TAB PO SCH ×2 (08:55→21:38)
[2021-01-20] MEDS: VANCOMYCIN 1.25 GM/250 ML BAG 1.25 GM in Premix Bag 1 BAG IVPB SCH ×2 (11:24→23:46)
[2021-01-20] MEDS: HYDROcodone/Acetaminophen 7.5/325 mg Tablet PO PRN (13:55)
[2021-01-20] MEDS ORDERED: diphenhydrAMINE 50 MG/ML VIAL ONE (16:38)
[2021-01-20] MEDS ORDERED: diphenhydrAMINE 50 MG/ML VIAL IVP SCH (17:00)
[2021-01-20] MEDS: Atorvastatin Calcium 10 MG TAB PO SCH (21:38)
[2021-01-21] MEDS: Morphine 4 MG/ML VIAL SLOW IVP PRN ×2 (05:59→12:18)
[2021-01-21] MEDS: HumaLOG 300 UNITS/3 ML VIAL SC PRN (06:00)
[2021-01-21] MEDS: Lisinopril 20 MG TAB PO SCH (09:14)
[2021-01-21] MEDS: metFORMIN 500 MG TAB PO SCH (09:14)
[2021-01-21] MEDS: Glimepiride 4 MG TAB PO SCH (09:15)
[2021-01-21] MEDS: Atenolol 25 MG TAB PO SCH (09:15)
[2021-01-21 16:09] VITALS: BP 102/64; TEMP 98.2
[2021-01-21 16:15] LABS: Fungus Stain Final report (.)
[2021-01-21 16:15] LABS: Fungus Stain Final report (.)
[2021-02-17 10:14] LABS: Fungus Culture Final report (.)
[2021-02-17 10:14] LABS: Fungus Culture Final report (.)
== END 2021-01-21 17:19 | disposition home or self-care (01) | DRG 478 ==
LOC: ERS 13:34 → SDC/OP 20:58 → SJJU 22:58 → OBSVTOIN 22:58
PROVIDERS: ADMIT Orthopaedic Surgery Hand Surgery; ATTEND Orthopaedic Surgery Hand Surgery
PROC: 0R9W0ZZ Drainage of Right Finger Phalangeal Joint, Open Approach (ICD-10-PCS; principal; 2021-01-18)
PROC: 0LB70ZZ Excision of Right Hand Tendon, Open Approach (ICD-10-PCS; 2021-01-18)
PROC: 0LN70ZZ Release Right Hand Tendon, Open Approach (ICD-10-PCS; 2021-01-18)
PROC: 3E0234Z Introduction of Serum, Toxoid and Vaccine into Muscle, Percutaneous Approach (ICD-10-PCS; 2021-01-18)
PROC: 0PBT0ZX Excision of Right Finger Phalanx, Open Approach, Diagnostic (ICD-10-PCS; 2021-01-18)
DX: M65.841 Other synovitis and tenosynovitis, right hand (principal); M00.841 Arthritis due to other bacteria, right hand; L02.511 Cutaneous abscess of right hand; Z23 Encounter for immunization; Z20.822 Contact with and (suspected) exposure to COVID-19; F17.210 Nicotine dependence, cigarettes, uncomplicated; E78.5 Hyperlipidemia, unspecified; B95.61 Methicillin susceptible Staphylococcus aureus infection as the cause of diseases classified elsewhere; E11.65 Type 2 diabetes mellitus with hyperglycemia; I10 Essential (primary) hypertension; E78.00 Pure hypercholesterolemia, unspecified; F41.9 Anxiety disorder, unspecified; Z85.47 Personal history of malignant neoplasm of testis; Z88.0 Allergy status to penicillin; Z79.84 Long term (current) use of oral hypoglycemic drugs; Z79.899 Other long term (current) drug therapy
CPT/HCPCS: 36415; 36416; 80053; 85025; 85652; 86140; 87070; 87077; 87102; 87186; 87205; 87206; 88307; 90471; 90662; 90715; G0008; J1100; J1200; J1815; J2175; J2270; J2405; J2704; J3010; J3370; J3490; S0020; U0002

== ENCOUNTER 2021-01-21 22:29 | Inpatient (IN) | payer SELFPAY ==
[2021-01-21 22:48] LABS: Mean Corpuscular HGB CONC 33.5 g/dL (32.0-36.0); Mean Corpuscular Hemoglobin 29.8 pg (27.0-31.0); Mean Corpuscular Volume 89.2 fL (78.0-98.0); Mean Platelet Volume 7.7 fL (7.4-10.4); Platelet Count 226 thou/uL (130-400); RBC Distribution Width 12.6 % (11.5-14.5); Red Blood Cell (RBC) Count 6.02 mill/uL (4.70-6.10); White Blood Cell (WBC) Count 21.8 thou/uL (4.8-10.8)
[2021-01-21 23:03] LABS: Band 8 % (5-11); Lymphocytes 11 % (21-51); MDiff Complete? YES; Monocytes 5 % (0-10); Neutrophil 71 % (42-75); Platelet Morphology Comment Appears Adequate; RBC Morphology Normal; Reactive Lymphocytes 5 % (0-10)
[2021-01-21 23:06] LABS: ALT (SGPT) 37 U/L (8-55); AST (SGOT) 18 U/L (5-34); Albumin 3.3 g/dL (3.5-5.0); Alkaline Phosphatase 103 U/L (40-110); Anion Gap 14 mmol/L (10-20); BUN (Urea Nitrogen) 13 mg/dL (8.4-25.7); Bilirubin, Total 0.5 mg/dL (0.2-1.2); Calc. Creatinine Clearance 0 mL/min (70-130); Calcium 7.7 mg/dL (7.8-10.44); Carbon Dioxide 19 mmol/L (22-29); Chloride 108 mmol/L (98-107); Globulin 2.3 g/dL (2.4-3.5); Glucose 312 mg/dL (70-105); Potassium 3.4 mmol/L (3.5-5.1); Protein, Total 5.6 g/dL (6.0-8.3); Sodium 138 mmol/L (136-145)
[2021-01-21] MEDS ORDERED: Dextrose 5% in Water 1,000 ML IV PRN (23:36)
[2021-01-21] MEDS ORDERED: Dextrose 50% Abboject 50 ML SYRINGE SLOW IVP PRN (23:36)
[2021-01-22] MEDS ORDERED: Vancomycin 1.5 GRAM/300 ML BAG 1.5 GM in Premix Bag 1 BAG IVPB SCH ×2 (00:02→00:15)
[2021-01-22] MEDS ORDERED: Clindamycin/D5W 600 MG in Premix Bag 1 BAG IVPB SCH (00:15)
[2021-01-22] MEDS ORDERED: Ondansetron ODT 4 MG TAB SL PRN (00:45)
[2021-01-22] MEDS ORDERED: Ondansetron PF 4 MG/2 ML Vial IVP PRN (00:45)
[2021-01-22 01:02] VITALS: BMI 31.3
[2021-01-22] MEDS: Acetaminophen 325 MG TAB PO PRN ×2 (01:18→08:59)
[2021-01-22] MEDS: Sodium Chloride 0.9% 1,000 ML IV SCH ×2 (01:18→11:06)
[2021-01-22] MEDS: HumaLOG 300 UNITS/3 ML VIAL SC PRN ×3 (01:40→11:12)
[2021-01-22] MEDS ORDERED: Morphine 4 MG/ML VIAL SLOW IVP PRN (01:48)
[2021-01-22 03:42] LABS: #Lymphocytes 0.8 thou/uL (1.20-3.40); #Monocytes 0.7 thou/uL (0.11-0.59); #Neutrophils 13.7 thou/uL (1.40-6.50); %Basophils 0.1 % (0.0-1.0); %Eosinophils 0.2 % (0.0-10.0); %Lymphocytes 5.1 % (21.0-51.0); %Monocytes 4.4 % (0.0-10.0); %Neutrophils 90.2 % (42.0-75.0); Hemoglobin 15.7 g/dL (14.0-18.0); Mean Corpuscular HGB CONC 33.8 g/dL (32.0-36.0); Mean Corpuscular Hemoglobin 29.7 pg (27.0-31.0); Mean Platelet Volume 8.5 fL (7.4-10.4); Platelet Count 157 thou/uL (130-400); RBC Distribution Width 12.5 % (11.5-14.5); Red Blood Cell (RBC) Count 5.28 mill/uL (4.70-6.10); White Blood Cell (WBC) Count 15.2 thou/uL (4.8-10.8)
[2021-01-22 04:00] LABS: Anion Gap 17 mmol/L (10-20); BUN (Urea Nitrogen) 15 mg/dL (8.4-25.7); Calc. Creatinine Clearance 134 mL/min (70-130); Calcium 7.9 mg/dL (7.8-10.44); Carbon Dioxide 15 mmol/L (22-29); Chloride 107 mmol/L (98-107); Glucose 304 mg/dL (70-105); Potassium 4.2 mmol/L (3.5-5.1); Sodium 135 mmol/L (136-145)
[2021-01-22] MEDS: Clindamycin/D5W 600 MG in Premix Bag 1 BAG IVPB SCH ×2 (06:05→11:11)
[2021-01-22 06:14] LABS: Troponin I 0.022 ng/mL (< 0.028)
[2021-01-22 08:48] LABS: SARS-CoV-2 PCR by NAA Not Detected (NotDetected)
[2021-01-22] MEDS: Enoxaparin Sodium 40 MG/0.4 ML SYRINGE SC SCH ×2 (08:56→08:58)
[2021-01-22] MEDS ORDERED: HYDROcodone/Acetaminophen 5/325 mg Tablet PO SCH (12:00)
[2021-01-22 12:04] VITALS: TEMP 97.6
== END 2021-01-22 12:59 | disposition home or self-care (01) | DRG 916 ==
LOC: ERS 22:29 → CCU 23:15
PROVIDERS: ADMIT Student in an Organized Health Care Education/Training Program; ATTEND Internal Medicine
DX: T88.6XXA Anaphylactic reaction due to adverse effect of correct drug or medicament properly administered, initial encounter (principal); T39.315A Adverse effect of propionic acid derivatives, initial encounter; Z20.822 Contact with and (suspected) exposure to COVID-19; T46.4X5A Adverse effect of angiotensin-converting-enzyme inhibitors, initial encounter; E11.9 Type 2 diabetes mellitus without complications; I10 Essential (primary) hypertension; E78.00 Pure hypercholesterolemia, unspecified; F32.9 Major depressive disorder, single episode, unspecified; F17.210 Nicotine dependence, cigarettes, uncomplicated; T78.3XXA Angioneurotic edema, initial encounter; I48.91 Unspecified atrial fibrillation; Z85.47 Personal history of malignant neoplasm of testis; Z88.5 Allergy status to narcotic agent; Z88.0 Allergy status to penicillin; Z79.84 Long term (current) use of oral hypoglycemic drugs; Z79.899 Other long term (current) drug therapy
CPT/HCPCS: 36415; 36416; 71045; 80048; 80053; 82553; 84484; 85025; 87635; 93005; 94760; J1650; J1815; J2270; J3370; J3490; U0003; U0005

== ENCOUNTER 2022-03-07 10:55 | Emergency (ER) | payer OTHER, SELFPAY ==
[2022-03-07] MEDS ORDERED: Acetaminophen 500 MG TAB ONE (12:29)
[2022-03-07 12:47] LABS: #Basophils 0.1 thou/uL (0.0-0.2); #Eosinphils 0.1 thou/uL (0.0-0.7); #Lymphocytes 1.8 thou/uL (1.20-3.40); #Monocytes 0.5 thou/uL (0.11-0.59); %Basophils 0.7 % (0.0-1.0); %Eosinophils 0.6 % (0.0-10.0); %Lymphocytes 19.6 % (21.0-51.0); %Monocytes 4.9 % (0.0-10.0); %Neutrophils 74.2 % (42.0-75.0); Mean Corpuscular HGB CONC 33.4 g/dL (32.0-36.0); Mean Corpuscular Hemoglobin 30.3 pg (27.0-31.0); Mean Corpuscular Volume 90.8 fL (78.0-98.0); Mean Platelet Volume 7.7 fL (7.4-10.4); Platelet Count 187 thou/uL (130-400); Red Blood Cell (RBC) Count 5.93 mill/uL (4.70-6.10); White Blood Cell (WBC) Count 9.4 thou/uL (4.8-10.8)
[2022-03-07 13:20] LABS: ALT (SGPT) 16 U/L (8-55); AST (SGOT) 12 U/L (5-34); Albumin 3.9 g/dL (3.5-5.0); Alkaline Phosphatase 148 U/L (40-110); Anion Gap 15 mmol/L (10-20); BUN (Urea Nitrogen) 9 mg/dL (8.4-25.7); Bilirubin, Total 0.8 mg/dL (0.2-1.2); Calc. Creatinine Clearance 0 mL/min (70-130); Calcium 9.2 mg/dL (7.8-10.44); Carbon Dioxide 28 mmol/L (22-29); Chloride 96 mmol/L (98-107); Glucose 510 mg/dL (70-105); Potassium 3.8 mmol/L (3.5-5.1); Protein, Total 6.9 g/dL (6.0-8.3); Sodium 135 mmol/L (136-145)
[2022-03-07 14:59] LABS: Bacteria/HPF None Seen HPF (None Seen); Bilirubin Negative (Negative); Blood, Urine Negative (Negative); Clarity Clear (Clear); Glucose, Urine (Dipstick) Greater than 1000 mg/dL (Negative); Ketone, Urine Negative (Negative); Leukocyte Negative Leu/uL (Negative); Nitrite Negative (Negative); Protein, Urine (Dipstick) 70 mg/dL (Neg-Trace); RBC/HPF 0-3 HPF (0-3); Specific Gravity, Urine 1.044 (1.002-1.036); Squamous Epithelial None Seen HPF (0-3); Urobilinogen Normal mg/dL (Less than 2); WBC/HPF 0-3 HPF (0-3); pH, Urine 6.5 (5.0-9.0)
[2022-03-07] MEDS ORDERED: Morphine 4 MG/ML VIAL ONE (15:30)
== END 2022-03-07 16:12 | disposition home or self-care (01) ==
LOC: ERS 10:55
DX: R10.32 Left lower quadrant pain (principal); E11.65 Type 2 diabetes mellitus with hyperglycemia; I10 Essential (primary) hypertension; I48.91 Unspecified atrial fibrillation; E78.00 Pure hypercholesterolemia, unspecified; F17.210 Nicotine dependence, cigarettes, uncomplicated; Z79.01 Long term (current) use of anticoagulants
CPT/HCPCS: 36415; 71045; 74177; 76870; 80053; 81003; 81015; 85025; 87086; 93005; 93976; 96374; J2270

== ENCOUNTER 2022-04-06 19:48 | Inpatient (IN) | payer BC, OTHER ==
[2022-04-06 20:14] LABS: Bacteria/HPF None Seen HPF (None Seen); Bilirubin Negative (Negative); Blood, Urine Negative (Negative); Clarity Clear (Clear); Glucose, Urine (Dipstick) 200 mg/dL (Negative); Ketone, Urine Negative (Negative); Leukocyte Negative Leu/uL (Negative); Nitrite Negative (Negative); Protein, Urine (Dipstick) 50 mg/dL (Neg-Trace); RBC/HPF 0-3 HPF (0-3); Specific Gravity, Urine 1.006 (1.002-1.036); Squamous Epithelial None Seen HPF (0-3); Urobilinogen Normal mg/dL (Less than 2); WBC/HPF 0-3 HPF (0-3); pH, Urine 6.5 (5.0-9.0)
[2022-04-06 20:52] LABS: #Eosinphils 0.1 thou/uL (0.0-0.7); #Lymphocytes 2.6 thou/uL (1.20-3.40); #Monocytes 0.6 thou/uL (0.11-0.59); #Neutrophils 4.3 thou/uL (1.40-6.50); %Basophils 0.4 % (0.0-1.0); %Lymphocytes 34.8 % (21.0-51.0); %Monocytes 7.4 % (0.0-10.0); %Neutrophils 56.3 % (42.0-75.0); Hemoglobin 15.9 g/dL (14.0-18.0); Mean Corpuscular HGB CONC 34.8 g/dL (32.0-36.0); Mean Corpuscular Hemoglobin 31.2 pg (27.0-31.0); Mean Corpuscular Volume 89.7 fL (78.0-98.0); Mean Platelet Volume 7.4 fL (7.4-10.4); Platelet Count 161 thou/uL (130-400); RBC Distribution Width 11.9 % (11.5-14.5); Red Blood Cell (RBC) Count 5.09 mill/uL (4.70-6.10); White Blood Cell (WBC) Count 7.5 thou/uL (4.8-10.8)
[2022-04-06 21:14] LABS: ALT (SGPT) 15 U/L (8-55); AST (SGOT) 14 U/L (5-34); Albumin 3.6 g/dL (3.5-5.0); Alkaline Phosphatase 125 U/L (40-110); Anion Gap 12 mmol/L (10-20); BUN (Urea Nitrogen) 8 mg/dL (8.4-25.7); Bilirubin, Total 0.7 mg/dL (0.2-1.2); Calc. Creatinine Clearance 0 mL/min (70-130); Calcium 8.8 mg/dL (7.8-10.44); Carbon Dioxide 29 mmol/L (22-29); Chloride 101 mmol/L (98-107); Globulin 2.5 g/dL (2.4-3.5); Glucose 242 mg/dL (70-105); Lipase 27 U/L (8-78); Potassium 3.2 mmol/L (3.5-5.1); Protein, Total 6.1 g/dL (6.0-8.3)
[2022-04-06] MEDS ORDERED: Morphine 4 MG/ML VIAL ONE (21:34)
[2022-04-06] MEDS ORDERED: Ondansetron PF 4 MG/2 ML Vial ONE (21:34)
[2022-04-06 22:01] LABS: Sodium 139 mmol/L (136-145)
[2022-04-06] MEDS ORDERED: Acetaminophen 500 MG TAB PO PRN (22:34)
[2022-04-06] MEDS ORDERED: Ondansetron ODT 4 MG TAB PO PRN (22:34)
[2022-04-06] MEDS ORDERED: Dextrose 5% in Water 1,000 ML IV PRN (22:34)
[2022-04-06] MEDS ORDERED: Dextrose 50% Abboject 50 ML SYRINGE SLOW IVP PRN (22:34)
[2022-04-06] MEDS ORDERED: hydrALAZINE 20 MG/ML VIAL SLOW IVP PRN (22:34)
[2022-04-06] MEDS ORDERED: Labetalol HCl 100 MG/20 ML VIAL SLOW IVP PRN (22:34)
[2022-04-06] MEDS ORDERED: HumaLOG 300 UNITS/3 ML VIAL SC PRN (22:34)
[2022-04-06] MEDS ORDERED: HYDROcodone/Acetaminophen 7.5/325 mg Tablet PO PRN (22:34)
[2022-04-06] MEDS ORDERED: Potassium Chloride 20 MEQ TAB PO SCH (23:00)
[2022-04-06] MEDS ORDERED: Morphine 4 MG/ML VIAL SLOW IVP SCH (23:00)
[2022-04-06] MEDS: Sodium Chloride 0.9% 1,000 ML IV SCH (23:39)
[2022-04-07 00:27] VITALS: BMI 24.5
[2022-04-07] MEDS: HumaLOG 300 UNITS/3 ML VIAL SC PRN (04:54)
[2022-04-07] MEDS: Morphine 4 MG/ML VIAL SLOW IVP PRN ×5 (04:58→23:33)
[2022-04-07 05:45] LABS: #Eosinphils 0.1 thou/uL (0.0-0.7); #Monocytes 0.5 thou/uL (0.11-0.59); #Neutrophils 4.6 thou/uL (1.40-6.50); %Basophils 0.1 % (0.0-1.0); %Eosinophils 1.5 % (0.0-10.0); %Lymphocytes 28.2 % (21.0-51.0); %Monocytes 6.6 % (0.0-10.0); %Neutrophils 63.6 % (42.0-75.0); Hemoglobin 15.8 g/dL (14.0-18.0); Mean Corpuscular HGB CONC 33.2 g/dL (32.0-36.0); Mean Corpuscular Volume 90.2 fL (78.0-98.0); Mean Platelet Volume 7.6 fL (7.4-10.4); Platelet Count 133 thou/uL (130-400); RBC Distribution Width 11.9 % (11.5-14.5); Red Blood Cell (RBC) Count 5.29 mill/uL (4.70-6.10); White Blood Cell (WBC) Count 7.2 thou/uL (4.8-10.8)
[2022-04-07 06:12] LABS: ALT (SGPT) 14 U/L (8-55); AST (SGOT) 12 U/L (5-34); Albumin 3.5 g/dL (3.5-5.0); Alkaline Phosphatase 121 U/L (40-110); Anion Gap 11 mmol/L (10-20); BUN (Urea Nitrogen) 8 mg/dL (8.4-25.7); Bilirubin, Total 0.5 mg/dL (0.2-1.2); Calc. Creatinine Clearance 105 mL/min (70-130); Calcium 8.8 mg/dL (7.8-10.44); Carbon Dioxide 30 mmol/L (22-29); Chloride 103 mmol/L (98-107); Globulin 2.5 g/dL (2.4-3.5); Glucose 291 mg/dL (70-105); Potassium 3.8 mmol/L (3.5-5.1); Sodium 140 mmol/L (136-145)
[2022-04-07] MEDS: Atenolol 25 MG TAB PO SCH ×2 (08:15→08:25)
[2022-04-07] MEDS: Potassium Chloride 20 MEQ TAB PO SCH ×3 (08:15→17:59)
[2022-04-07] MEDS: Famotidine 20 MG TAB PO SCH ×3 (08:16→19:45)
[2022-04-07] MEDS: Ondansetron PF 4 MG/2 ML Vial IVP PRN ×3 (08:23→19:45)
[2022-04-07] MEDS: Sodium Chloride 0.9% 1,000 ML IV SCH ×2 (08:26→10:25)
[2022-04-07] MEDS: HYDROcodone/Acetaminophen 7.5/325 mg Tablet PO PRN (12:39)
[2022-04-07] MEDS ORDERED: Ondansetron ODT 4 MG TAB PO PRN (13:09)
[2022-04-07] MEDS ORDERED: Lactated Ringer's 1,000 ML IV SCH (13:15)
[2022-04-07] MEDS: Dextrose 5% in Water 1,000 ML IV SCH (13:38)
[2022-04-07] MEDS ORDERED: fentaNYL Citrate/PF 100 MCG/2 ML SYRINGE ONE (19:07)
[2022-04-07] MEDS ORDERED: Iopamidol 15 ML ONE (19:24)
[2022-04-07] MEDS: Tamsulosin HCl 0.4 MG CAP PO SCH (19:45)
[2022-04-07] MEDS ORDERED: Promethazine HCl 25 MG/ML VIAL IVPB PRN (21:01)
[2022-04-07] MEDS ORDERED: PACU-Morphine 4MG/ML VIAL SLOW IVP PRN (21:01)
[2022-04-07] MEDS ORDERED: Ondansetron HCl/PF 4 MG/2 ML Vial IVP PRN (21:01)
[2022-04-07] MEDS ORDERED: Promethazine HCl 25 MG/ML VIAL IM PRN (21:01)
[2022-04-07] MEDS ORDERED: HYDROmorphone 2 MG/ML VIAL SLOW IVP PRN (21:01)
[2022-04-08] MEDS: Morphine 4 MG/ML VIAL SLOW IVP PRN ×4 (04:38→20:49)
[2022-04-08] MEDS: Ondansetron PF 4 MG/2 ML Vial IVP PRN ×2 (04:38→20:51)
[2022-04-08] MEDS: Dextrose 5% in Water 1,000 ML IV SCH (04:47)
[2022-04-08] MEDS: HumaLOG 300 UNITS/3 ML VIAL SC PRN ×3 (06:07→16:40)
[2022-04-08 06:10] LABS: #Lymphocytes 1.8 thou/uL (1.20-3.40); #Monocytes 0.5 thou/uL (0.11-0.59); #Neutrophils 6.1 thou/uL (1.40-6.50); %Basophils 0.1 % (0.0-1.0); %Eosinophils 0.6 % (0.0-10.0); %Lymphocytes 21.3 % (21.0-51.0); %Neutrophils 72.1 % (42.0-75.0); Hemoglobin 15.2 g/dL (14.0-18.0); Mean Corpuscular HGB CONC 33.7 g/dL (32.0-36.0); Mean Corpuscular Hemoglobin 30.5 pg (27.0-31.0); Mean Corpuscular Volume 90.5 fL (78.0-98.0); Mean Platelet Volume 7.8 fL (7.4-10.4); Platelet Count 141 thou/uL (130-400); Red Blood Cell (RBC) Count 4.97 mill/uL (4.70-6.10); White Blood Cell (WBC) Count 8.4 thou/uL (4.8-10.8)
[2022-04-08 06:39] LABS: Anion Gap 12 mmol/L (10-20); BUN (Urea Nitrogen) 12 mg/dL (8.4-25.7); Calc. Creatinine Clearance 118 mL/min (70-130); Calcium 8.7 mg/dL (7.8-10.44); Carbon Dioxide 26 mmol/L (22-29); Chloride 103 mmol/L (98-107); Glucose 228 mg/dL (70-105); Potassium 3.5 mmol/L (3.5-5.1); Sodium 137 mmol/L (136-145)
[2022-04-08] MEDS: HYDROcodone/Acetaminophen 7.5/325 mg Tablet PO PRN (07:06)
[2022-04-08] MEDS: Atenolol 25 MG TAB PO SCH (08:48)
[2022-04-08] MEDS: Potassium Chloride 20 MEQ TAB PO SCH ×2 (08:48→16:39)
[2022-04-08] MEDS: Famotidine 20 MG TAB PO SCH ×2 (08:48→20:50)
[2022-04-08] MEDS: Tamsulosin HCl 0.4 MG CAP PO SCH (20:51)
[2022-04-09] MEDS: HYDROcodone/Acetaminophen 7.5/325 mg Tablet PO PRN ×3 (02:15→11:02)
[2022-04-09] MEDS: HumaLOG 300 UNITS/3 ML VIAL SC PRN (06:03)
[2022-04-09 08:01] VITALS: TEMP 97.5
[2022-04-09] MEDS: Atenolol 25 MG TAB PO SCH (08:27)
[2022-04-09] MEDS: Potassium Chloride 20 MEQ TAB PO SCH (08:30)
[2022-04-09] MEDS: Famotidine 20 MG TAB PO SCH (08:30)
[2022-04-09] MEDS ORDERED: Nicotine 21 MG PATCH TD SCH (09:00)
[2022-04-09] MEDS ORDERED: Senokot S 8.6-50 MG TAB PO SCH (09:00)
[2022-04-09 11:40] VITALS: BP 148/82
== END 2022-04-09 13:38 | disposition home or self-care (01) | DRG 659 ==
LOC: ERS 19:48 → T4-A 22:34
PROVIDERS: ADMIT Family Medicine; ATTEND Internal Medicine
PROC: 0T778DZ Dilation of Left Ureter with Intraluminal Device, Via Natural or Artificial Opening Endoscopic (ICD-10-PCS; principal; 2022-04-07)
PROC: 8E0ZXY6 Isolation (ICD-10-PCS; 2022-04-07)
DX: N13.2 Hydronephrosis with renal and ureteral calculous obstruction (principal); U07.1 COVID-19; I48.20 Chronic atrial fibrillation, unspecified; E11.9 Type 2 diabetes mellitus without complications; I10 Essential (primary) hypertension; E78.00 Pure hypercholesterolemia, unspecified; F17.210 Nicotine dependence, cigarettes, uncomplicated; E78.5 Hyperlipidemia, unspecified; Z98.890 Other specified postprocedural states; Z88.0 Allergy status to penicillin; Z88.8 Allergy status to other drugs, medicaments and biological substances; E87.6 Hypokalemia
CPT/HCPCS: 36415; 36416; 74176; 74420; 80048; 80053; 81003; 81015; 83036; 83690; 85025; 87086; 93005; 93010; 96361; 96374; 96375; C2617; J1815; J1956; J2270; J2405; J7050; J7070; Q9967; U0003; U0005

== ENCOUNTER 2023-01-25 20:21 | Emergency (ER) | payer SELFPAY ==
[2023-01-25] MEDS ORDERED: Bupivacaine 0.25% 10 ML VIAL ONE (20:31)
[2023-01-25] MEDS ORDERED: Lidocaine 1% PF 5 ML VIAL ONE (20:31)
== END 2023-01-25 21:34 | disposition home or self-care (01) ==
LOC: ERS 20:21
DX: S62.634B Displaced fracture of distal phalanx of right ring finger, initial encounter for open fracture (principal); S60.454A Superficial foreign body of right ring finger, initial encounter; E11.9 Type 2 diabetes mellitus without complications; E78.00 Pure hypercholesterolemia, unspecified; I10 Essential (primary) hypertension; F17.210 Nicotine dependence, cigarettes, uncomplicated; W29.4XXA Contact with nail gun, initial encounter
CPT/HCPCS: S0020

== ENCOUNTER 2025-09-15 11:39 | Inpatient (IN) | payer BC, SELFPAY ==
[2025-09-15] MEDS ORDERED: Dextrose 50% Abboject 50 ML SYRINGE SLOW IVP PRN (16:04)
[2025-09-15] MEDS ORDERED: Glucagon 1 MG/ML KIT IM PRN (16:04)
[2025-09-15] MEDS: Enoxaparin 80 MG (0.8 mL) SYRINGE SC SCH (20:15)
[2025-09-15] MEDS: Acetaminophen 500 MG TAB PO PRN (22:39)
[2025-09-16] MEDS: HYDROcodone/Acetaminophen 10/325 mg Tablet PO SCH (00:15)
[2025-09-16 05:40] LABS: Anion Gap 14 mmol/L (10-20); BUN (Urea Nitrogen) 12 mg/dL (8.4-25.7); Calc. Creatinine Clearance 150 mL/min (70-130); Calcium 9.0 mg/dL (7.8-10.44); Carbon Dioxide 32 mmol/L (23-31); Chloride 100 mmol/L (98-107); Glucose 136 mg/dL (80-115); Potassium 4.0 mmol/L (3.5-5.1); Sodium 142 mmol/L (136-145)
[2025-09-16] MEDS: Gabapentin 300 MG CAP PO SCH (15:46)
[2025-09-16] MEDS: oxyCODONE 5 MG TAB PO PRN ×2 (15:47→20:31)
[2025-09-16] MEDS: Senokot S 8.6-50 MG TAB PO SCH (20:23)
[2025-09-17 05:45] LABS: Hematocrit 41.8 % (42.0-52.0); Hemoglobin 13.8 g/dL (14.0-18.0); Platelet Count 238 10x3/uL (130-400)
[2025-09-17] MEDS: Losartan 25 MG TAB PO SCH (09:15)
[2025-09-17] MEDS: metFORMIN 500 MG TAB PO SCH (16:40)
[2025-09-17] MEDS: Melatonin 3 MG TAB PO PRN (20:13)
[2025-09-19] MEDS: Heparin 10,000 UNITS/ 10 ML VIAL SLOW IVP SCH (12:17)
[2025-09-19] MEDS: Mometasone 200 MCG/Formoterol 5 MCG 120 PUFF INHALER INH SCH (19:33)
[2025-09-20 08:54] LABS: #Basophils 0.05 10x3/uL (0.0-0.2); #Eosinophils 0.04 10x3/uL (0.0-0.7); #Monocytes 0.81 10x3/uL (0.11-0.59); #Neutrophils 10.55 10x3/uL (1.40-6.50); %Basophils 0.4 % (0.0-1.0); %Eosinophils 0.3 % (0.0-10.0); %Lymphocytes 15.2 % (21.0-51.0); %Monocytes 6.0 % (0.0-10.0); %Neutrophils 77.7 % (42.0-75.0); Hematocrit 37.2 % (42.0-52.0); Hemoglobin 12.2 g/dL (14.0-18.0); Mean Corpuscular Hemoglobin 28.7 pg (27.0-31.0); Mean Corpuscular Volume 87.5 fL (78.0-98.0); Platelet Count 206 10x3/uL (130-400); Red Blood Cell (RBC) Count 4.25 mill/uL (4.70-6.10); White Blood Cell (WBC) Count 13.56 10x3/uL (4.8-10.8)
[2025-09-22] MEDS ORDERED: Thrombin 5000 UNITS/5 ML VIAL ONE (06:31)
[2025-09-22] MEDS ORDERED: LevoFLOXacin D5W 500 mg (100 mL) BAG ONE (06:33)
[2025-09-22] MEDS ORDERED: PHENYLEPHRINE-NS 100 MCG/ML 10 ML SYRINGE ONE (06:39)
[2025-09-22] MEDS ORDERED: fentaNYL PF 100 MCG/2 ML SYRINGE ONE (06:39)
[2025-09-22] MEDS ORDERED: Clindamycin/D5W 900 MG in Premix 1 BAG IVPB SCH (07:00)
[2025-09-22] MEDS ORDERED: LevoFLOXacin 500 mg/D5W 500 MG in Premix 1 BAG IVPB SCH (07:00)
[2025-09-22] MEDS ORDERED: Metoprolol Tartrate 5 MG (5 mL) VIAL ONE (07:03)
[2025-09-22] MEDS ORDERED: Phenylephrine 40 MG/NS 250 ML 250 ML ONE (08:31)
[2025-09-22 09:22] LABS: INR-International Normal Ratio 1.1; Prothrombin Time 14.5 sec (12.0-14.7)
[2025-09-22 09:23] LABS: PTT 28.5 sec (22.9-36.1)
[2025-09-22] MEDS ORDERED: Rocuronium Bromide 10 MG/ML (10ML VIAL) ONE (09:32)
[2025-09-22] MEDS ORDERED: HYDROmorphone 2 MG/ML VIAL ONE (11:52)
[2025-09-22] MEDS ORDERED: Ondansetron PF 4 MG/2 ML Vial ONE (14:16)
[2025-09-22] MEDS ORDERED: Ventilator Sedation Protocol 1 EACH FS SCH (15:30)
[2025-09-22] MEDS ORDERED: Propofol BOLUS 1,000 MG/100 ML VIAL IV PRN (15:30)
[2025-09-22] MEDS ORDERED: Fentanyl BOLUS 100 ML IVPB PRN (15:30)
[2025-09-22] MEDS ORDERED: DISCONTINUE PREVIOUS NARCOTIC PAIN MEDICATIONS AND BENZODIAZEPINES FS SCH (15:30)
[2025-09-22] MEDS: Pantoprazole 40 MG VIAL IVP SCH (19:39)
[2025-09-22] MEDS: Clindamycin/D5W 900 MG in Premix 1 BAG IVPB SCH (22:36)
[2025-09-23 04:29] LABS: #Basophils Less than 0.03 10x3/uL (0.0-0.2); #Eosinophils Less than 0.03 10x3/uL (0.0-0.7); #Monocytes 0.79 10x3/uL (0.11-0.59); #Neutrophils 10.94 10x3/uL (1.40-6.50); %Basophils 0.2 % (0.0-1.0); %Eosinophils 0.0 % (0.0-10.0); %Lymphocytes 7.6 % (21.0-51.0); %Monocytes 6.1 % (0.0-10.0); %Neutrophils 85.1 % (42.0-75.0); Hematocrit 34.7 % (42.0-52.0); Hemoglobin 11.2 g/dL (14.0-18.0); Mean Corpuscular Hemoglobin 28.6 pg (27.0-31.0); Mean Corpuscular Volume 88.5 fL (78.0-98.0); Platelet Count 215 10x3/uL (130-400); Red Blood Cell (RBC) Count 3.92 mill/uL (4.70-6.10); White Blood Cell (WBC) Count 12.86 10x3/uL (4.8-10.8)
[2025-09-23 04:50] LABS: ALT (SGPT) 16 U/L (Less than 45); AST (SGOT) 13 U/L (11-34); Albumin 2.6 g/dL (3.1-4.5); Alkaline Phosphatase 101 U/L (40-110); Anion Gap 13 mmol/L (10-20); BUN (Urea Nitrogen) 16 mg/dL (8.4-25.7); Bilirubin, Total 0.3 mg/dL (0.3-1.2); Calc. Creatinine Clearance 150 mL/min (70-130); Calcium 8.6 mg/dL (7.8-10.44); Carbon Dioxide 29 mmol/L (23-31); Chloride 98 mmol/L (98-107); Globulin 3.1 g/dL (2.4-3.5); Glucose 287 mg/dL (80-115); Potassium 4.8 mmol/L (3.5-5.1); Sodium 135 mmol/L (136-145)
[2025-09-23] MEDS: LevoFLOXacin 500 mg/D5W 500 MG in Premix 1 BAG IVPB SCH (06:00)
[2025-09-23] MEDS: Enoxaparin 30 MG (0.3 mL) SYRINGE SC SCH (09:09)
[2025-09-23] MEDS: Pantoprazole 40 MG VIAL IVP SCH (09:09)
[2025-09-23] MEDS ORDERED: OxyCODONE IR 30 MG TAB PO PRN (15:48)
[2025-09-24 03:56] LABS: #Basophils 0.04 10x3/uL (0.0-0.2); #Eosinophils Less than 0.03 10x3/uL (0.0-0.7); #Monocytes 0.89 10x3/uL (0.11-0.59); #Neutrophils 11.99 10x3/uL (1.40-6.50); %Basophils 0.3 % (0.0-1.0); %Eosinophils 0.0 % (0.0-10.0); %Lymphocytes 9.0 % (21.0-51.0); %Monocytes 6.1 % (0.0-10.0); %Neutrophils 82.7 % (42.0-75.0); Hematocrit 33.9 % (42.0-52.0); Hemoglobin 11.5 g/dL (14.0-18.0); Mean Corpuscular Hemoglobin 29.5 pg (27.0-31.0); Mean Corpuscular Volume 86.9 fL (78.0-98.0); Platelet Count 214 10x3/uL (130-400); Red Blood Cell (RBC) Count 3.90 mill/uL (4.70-6.10); White Blood Cell (WBC) Count 14.50 10x3/uL (4.8-10.8)
[2025-09-24] MEDS: Metoclopramide HCl 10 MG (2 mL) VIAL IVP PRN (21:26)
[2025-09-24] MEDS: oxyCODONE/Acetaminophen 5 mg/325 mg Tablet PO PRN (21:31)
[2025-09-25 05:09] LABS: Hematocrit 35.9 % (42.0-52.0); Hemoglobin 11.6 g/dL (14.0-18.0); Mean Corpuscular Hemoglobin 28.4 pg (27.0-31.0); Mean Corpuscular Volume 87.8 fL (78.0-98.0); Platelet Count 228 10x3/uL (130-400); Red Blood Cell (RBC) Count 4.09 mill/uL (4.70-6.10); White Blood Cell (WBC) Count 12.20 10x3/uL (4.8-10.8)
[2025-09-25 05:14] LABS: Anion Gap 16 mmol/L (10-20); BUN (Urea Nitrogen) 20 mg/dL (8.4-25.7); Calc. Creatinine Clearance 153 mL/min (70-130); Calcium 8.7 mg/dL (7.8-10.44); Carbon Dioxide 27 mmol/L (23-31); Chloride 100 mmol/L (98-107); Glucose 238 mg/dL (80-115); Potassium 4.7 mmol/L (3.5-5.1); Sodium 138 mmol/L (136-145)
[2025-09-25 06:17] LABS: Platelet Adequacy Comment Platelets Normal; RBC Morphology Within Normal Limits; Smudge Cells 12.1 %
[2025-09-25] MEDS: Pantoprazole 40 MG DR.TAB PO SCH (08:56)
[2025-09-25] MEDS: Pantoprazole 40 MG VIAL IVP SCH (10:48)
[2025-09-26 09:59] LABS: Actual Bicarbonate (HCO3a) 24.7 mEq/L (22-28); Base Excess (BEa) 0.0 mEq/L (-2.0 to +3.0); CO2 Tension 40.3 mmHg (35.0-45.0); Calcium, Ionized (arterial) 1.17 mmol/L (1.12-1.30); Hematocrit-ABG 43 % (42.0-52.0); Hemoglobin (Hb) 14.5 g/dL (14.0-18.0); Potassium - ABG Lab 4.11 mmol/L (3.70-5.30); pH, Arterial 7.405 (7.35-7.45)
[2025-09-26 10:03] LABS: O2 Tension (PaO2), arterial 41.4 mmHg (> 80.0)
[2025-09-26] MEDS: Pantoprazole 40 MG VIAL IVP SCH (10:34)
[2025-09-26 12:06] LABS: Hematocrit 38.5 % (42.0-52.0); Hemoglobin 12.6 g/dL (14.0-18.0); Mean Corpuscular Hemoglobin 28.6 pg (27.0-31.0); Mean Corpuscular Volume 87.3 fL (78.0-98.0); Platelet Count 221 10x3/uL (130-400); Red Blood Cell (RBC) Count 4.41 mill/uL (4.70-6.10); White Blood Cell (WBC) Count 23.86 10x3/uL (4.8-10.8)
[2025-09-26 12:11] LABS: Anion Gap 15 mmol/L (10-20); BUN (Urea Nitrogen) 34 mg/dL (8.4-25.7); Calc. Creatinine Clearance 129 mL/min (70-130); Calcium 9.1 mg/dL (7.8-10.44); Carbon Dioxide 26 mmol/L (23-31); Chloride 99 mmol/L (98-107); Glucose 285 mg/dL (80-115); Potassium 4.4 mmol/L (3.5-5.1); Sodium 136 mmol/L (136-145)
[2025-09-26 12:40] LABS: Anisocytosis SLIGHT = 6-15 cells HPF (0-5); Burr Cells SLIGHT = 2-5 cells HPF (0-1); Platelet Adequacy Comment Platelets Normal; Poikilocytosis SLIGHT = 6-15 cells HPF (0-5); Polychromasia SLIGHT = 2-3 cells HPF (0-2); Smudge Cells 5.0 %
[2025-09-26] MEDS: Furosemide 40 MG (4 mL) VIAL SLOW IVP SCH (18:01)
[2025-09-27 04:43] LABS: #Basophils 0.08 10x3/uL (0.0-0.2); #Eosinophils 0.08 10x3/uL (0.0-0.7); #Monocytes 0.44 10x3/uL (0.11-0.59); #Neutrophils 14.66 10x3/uL (1.40-6.50); %Basophils 0.5 % (0.0-1.0); %Eosinophils 0.5 % (0.0-10.0); %Lymphocytes 6.5 % (21.0-51.0); %Monocytes 2.7 % (0.0-10.0); %Neutrophils 88.4 % (42.0-75.0); Hematocrit 36.7 % (42.0-52.0); Hemoglobin 12.2 g/dL (14.0-18.0); Mean Corpuscular Hemoglobin 28.6 pg (27.0-31.0); Mean Corpuscular Volume 86.2 fL (78.0-98.0); Platelet Count 214 10x3/uL (130-400); Red Blood Cell (RBC) Count 4.26 mill/uL (4.70-6.10); White Blood Cell (WBC) Count 16.58 10x3/uL (4.8-10.8)
[2025-09-27 05:01] LABS: Anion Gap 13 mmol/L (10-20); BUN (Urea Nitrogen) 26 mg/dL (8.4-25.7); Calc. Creatinine Clearance 171 mL/min (70-130); Calcium 9.2 mg/dL (7.8-10.44); Carbon Dioxide 31 mmol/L (23-31); Chloride 97 mmol/L (98-107); Glucose 229 mg/dL (80-115); Potassium 3.6 mmol/L (3.5-5.1); Sodium 137 mmol/L (136-145)
[2025-09-27] MEDS: Enoxaparin 40 MG (0.4 mL) SYRINGE SC SCH (09:51)
[2025-09-28 11:38] LABS: #Basophils 0.06 10x3/uL (0.0-0.2); #Eosinophils Less than 0.03 10x3/uL (0.0-0.7); #Monocytes 0.68 10x3/uL (0.11-0.59); #Neutrophils 14.87 10x3/uL (1.40-6.50); %Basophils 0.3 % (0.0-1.0); %Eosinophils 0.0 % (0.0-10.0); %Lymphocytes 11.0 % (21.0-51.0); %Monocytes 3.7 % (0.0-10.0); %Neutrophils 82.0 % (42.0-75.0); Hematocrit 39.8 % (42.0-52.0); Hemoglobin 12.9 g/dL (14.0-18.0); Mean Corpuscular Hemoglobin 28.6 pg (27.0-31.0); Mean Corpuscular Volume 88.2 fL (78.0-98.0); Platelet Count 245 10x3/uL (130-400); Red Blood Cell (RBC) Count 4.51 mill/uL (4.70-6.10); White Blood Cell (WBC) Count 18.14 10x3/uL (4.8-10.8)
[2025-09-28 11:58] LABS: Anion Gap 13 mmol/L (10-20); BUN (Urea Nitrogen) 30 mg/dL (8.4-25.7); Calc. Creatinine Clearance 136 mL/min (70-130); Calcium 9.1 mg/dL (7.8-10.44); Carbon Dioxide 32 mmol/L (23-31); Chloride 98 mmol/L (98-107); Glucose 157 mg/dL (80-115); Potassium 4.2 mmol/L (3.5-5.1); Sodium 139 mmol/L (136-145)
[2025-09-29 05:00] LABS: #Basophils 0.08 10x3/uL (0.0-0.2); #Eosinophils Less than 0.03 10x3/uL (0.0-0.7); #Monocytes 0.37 10x3/uL (0.11-0.59); #Neutrophils 13.84 10x3/uL (1.40-6.50); %Basophils 0.5 % (0.0-1.0); %Eosinophils 0.0 % (0.0-10.0); %Lymphocytes 7.3 % (21.0-51.0); %Monocytes 2.3 % (0.0-10.0); %Neutrophils 86.8 % (42.0-75.0); Hematocrit 40.7 % (42.0-52.0); Hemoglobin 13.1 g/dL (14.0-18.0); Mean Corpuscular Hemoglobin 28.2 pg (27.0-31.0); Mean Corpuscular Volume 87.7 fL (78.0-98.0); Platelet Count 240 10x3/uL (130-400); Red Blood Cell (RBC) Count 4.64 mill/uL (4.70-6.10); White Blood Cell (WBC) Count 15.96 10x3/uL (4.8-10.8)
[2025-09-29 05:24] LABS: Anion Gap 13 mmol/L (10-20); BUN (Urea Nitrogen) 29 mg/dL (8.4-25.7); Calc. Creatinine Clearance 139 mL/min (70-130); Calcium 9.0 mg/dL (7.8-10.44); Carbon Dioxide 32 mmol/L (23-31); Chloride 99 mmol/L (98-107); Glucose 189 mg/dL (80-115); Potassium 4.4 mmol/L (3.5-5.1); Sodium 140 mmol/L (136-145)
[2025-09-29] MEDS ORDERED: fentaNYL PF 100 MCG/2 ML SYRINGE ONE (12:42)
[2025-09-29] MEDS ORDERED: LevoFLOXacin D5W 500 mg (100 mL) BAG ONE (12:43)
[2025-09-29] MEDS ORDERED: Bupivacaine 0.25% HCL 30 ML VIAL ONE (12:51)
[2025-09-29] MEDS ORDERED: Ondansetron PF 4 MG/2 ML Vial ONE ×2 (13:42→13:54)
[2025-09-29] MEDS ORDERED: Lidocaine 1% PF 5 ML VIAL ONE (13:54)
[2025-09-29 14:55] LABS: Actual Bicarbonate (HCO3a) 25.3 mEq/L (22-28); Base Excess (BEa) 0.8 mEq/L (-2.0 to +3.0); CO2 Tension 40.0 mmHg (35.0-45.0); Hematocrit-ABG 41 % (42.0-52.0); Hemoglobin (Hb) 14.0 g/dL (14.0-18.0); O2 Tension (PaO2), arterial 66.0 mmHg (> 80.0); pH, Arterial 7.419 (7.35-7.45)
[2025-09-29 14:56] LABS: Calcium, Ionized (arterial) 1.13 mmol/L (1.12-1.30); Potassium - ABG Lab 4.32 mmol/L (3.70-5.30); Puncture Site Right Brachial art
[2025-09-30] MEDS: Enoxaparin 40 MG (0.4 mL) SYRINGE SC SCH (08:59)
[2025-10-01 06:14] LABS: #Basophils 0.10 10x3/uL (0.0-0.2); #Eosinophils Less than 0.03 10x3/uL (0.0-0.7); #Monocytes 1.19 10x3/uL (0.11-0.59); #Neutrophils 13.54 10x3/uL (1.40-6.50); %Basophils 0.6 % (0.0-1.0); %Eosinophils 0.1 % (0.0-10.0); %Lymphocytes 13.0 % (21.0-51.0); %Monocytes 6.8 % (0.0-10.0); %Neutrophils 76.9 % (42.0-75.0); Hematocrit 45.1 % (42.0-52.0); Hemoglobin 15.5 g/dL (14.0-18.0); Mean Corpuscular Hemoglobin 29.1 pg (27.0-31.0); Mean Corpuscular Volume 84.8 fL (78.0-98.0); Platelet Count 204 10x3/uL (130-400); Red Blood Cell (RBC) Count 5.32 mill/uL (4.70-6.10); White Blood Cell (WBC) Count 17.59 10x3/uL (4.8-10.8)
[2025-10-01 06:22] LABS: Anion Gap 12 mmol/L (10-20); BUN (Urea Nitrogen) 18 mg/dL (8.4-25.7); Calc. Creatinine Clearance 160 mL/min (70-130); Calcium 8.9 mg/dL (7.8-10.44); Carbon Dioxide 28 mmol/L (23-31); Chloride 97 mmol/L (98-107); Glucose 165 mg/dL (80-115); Magnesium 1.7 mg/dL (1.6-2.6); Potassium 4.4 mmol/L (3.5-5.1); Sodium 133 mmol/L (136-145)
[2025-10-01] MEDS: Enoxaparin 60 MG (0.6 mL) SYRINGE SC SCH (09:08)
[2025-10-02] MEDS: Methocarbamol 1 GM in Sodium Chloride 0.9% 100 ML IVPB SCH (00:59)
[2025-10-02 06:12] LABS: #Basophils 0.08 10x3/uL (0.0-0.2); #Eosinophils 0.05 10x3/uL (0.0-0.7); #Monocytes 0.65 10x3/uL (0.11-0.59); #Neutrophils 11.37 10x3/uL (1.40-6.50); %Basophils 0.5 % (0.0-1.0); %Eosinophils 0.3 % (0.0-10.0); %Lymphocytes 16.0 % (21.0-51.0); %Monocytes 4.4 % (0.0-10.0); %Neutrophils 76.6 % (42.0-75.0); Hematocrit 40.0 % (42.0-52.0); Hemoglobin 13.5 g/dL (14.0-18.0); Mean Corpuscular Hemoglobin 28.9 pg (27.0-31.0); Mean Corpuscular Volume 85.7 fL (78.0-98.0); Platelet Count 167 10x3/uL (130-400); Red Blood Cell (RBC) Count 4.67 mill/uL (4.70-6.10); White Blood Cell (WBC) Count 14.86 10x3/uL (4.8-10.8)
[2025-10-02 06:28] LABS: Anion Gap 7 mmol/L (10-20); BUN (Urea Nitrogen) 16 mg/dL (8.4-25.7); Calc. Creatinine Clearance 144 mL/min (70-130); Calcium 8.6 mg/dL (7.8-10.44); Carbon Dioxide 32 mmol/L (23-31); Chloride 99 mmol/L (98-107); Glucose 147 mg/dL (80-115); Potassium 3.8 mmol/L (3.5-5.1); Sodium 134 mmol/L (136-145)
[2025-10-02 06:29] LABS: CRP, High Sensitivity at Bryan 1.27 mg/dL (< or = 0.5)
[2025-10-02] MEDS: Enoxaparin 60 MG (0.6 mL) SYRINGE SC SCH (09:32)
[2025-10-02] MEDS: Furosemide 20 MG (2 mL) VIAL SLOW IVP SCH (14:59)
[2025-10-02 16:45] VITALS: BMI 17.1
[2025-10-03 03:52] VITALS: BMI 17.0
[2025-10-03 05:37] LABS: #Basophils 0.09 10x3/uL (0.0-0.2); #Eosinophils 0.06 10x3/uL (0.0-0.7); #Monocytes 0.88 10x3/uL (0.11-0.59); #Neutrophils 13.68 10x3/uL (1.40-6.50); %Basophils 0.5 % (0.0-1.0); %Eosinophils 0.3 % (0.0-10.0); %Lymphocytes 15.0 % (21.0-51.0); %Monocytes 4.9 % (0.0-10.0); %Neutrophils 77.0 % (42.0-75.0); Hematocrit 42.2 % (42.0-52.0); Hemoglobin 14.5 g/dL (14.0-18.0); Mean Corpuscular Hemoglobin 29.2 pg (27.0-31.0); Mean Corpuscular Volume 84.9 fL (78.0-98.0); Platelet Count 187 10x3/uL (130-400); Red Blood Cell (RBC) Count 4.97 mill/uL (4.70-6.10); White Blood Cell (WBC) Count 17.79 10x3/uL (4.8-10.8)
[2025-10-03 06:24] LABS: Anion Gap 16 mmol/L (10-20); BUN (Urea Nitrogen) 14 mg/dL (8.4-25.7); Calc. Creatinine Clearance 139 mL/min (70-130); Calcium 8.9 mg/dL (7.8-10.44); Carbon Dioxide 33 mmol/L (23-31); Chloride 96 mmol/L (98-107); Glucose 131 mg/dL (80-115); Potassium 3.7 mmol/L (3.5-5.1); Sodium 141 mmol/L (136-145)
[2025-10-03 20:23] VITALS: BP 114/77; TEMP 97.9
== END 2025-10-03 20:00 | disposition home or self-care (01) | DRG 471 ==
LOC: SURG B 14:27 → CCU 09-22 14:54 → IMCU/EMU 09-23 17:13 → CCU 09-23 17:26 → SURG A 09-24 12:37 → IMCU/EMU 09-26 14:11 → SURG B 09-30 23:26
PROVIDERS: ADMIT Neurological Surgery; ATTEND Internal Medicine
PROC: 0RG20A0 Fusion of 2 or more Cervical Vertebral Joints with Interbody Fusion Device, Anterior Approach, Anterior Column, Open Approach (ICD-10-PCS; principal; 2025-09-22)
PROC: 0RB30ZZ Excision of Cervical Vertebral Disc, Open Approach (ICD-10-PCS; principal; 2025-09-22)
PROC: 0T9B70Z Drainage of Bladder with Drainage Device, Via Natural or Artificial Opening (ICD-10-PCS; 2025-09-22)
PROC: 5A1945Z Respiratory Ventilation, 24-96 Consecutive Hours (ICD-10-PCS; 2025-09-22)
PROC: 0BH17EZ Insertion of Endotracheal Airway into Trachea, Via Natural or Artificial Opening (ICD-10-PCS; 2025-09-22)
PROC: 5A09357 Assistance with Respiratory Ventilation, Less than 24 Consecutive Hours, Continuous Positive Airway Pressure (ICD-10-PCS; 2025-09-23)
PROC: 5A0955A Assistance with Respiratory Ventilation, Greater than 96 Consecutive Hours, High Flow/Velocity Cannula (ICD-10-PCS; 2025-09-26)
PROC: 3E03329 Introduction of Other Anti-infective into Peripheral Vein, Percutaneous Approach (ICD-10-PCS; 2025-09-26)
PROC: 0DH63UZ Insertion of Feeding Device into Stomach, Percutaneous Approach (ICD-10-PCS; 2025-09-29)
DX: M48.02 Spinal stenosis, cervical region (principal); J69.0 Pneumonitis due to inhalation of food and vomit; L89.153 Pressure ulcer of sacral region, stage 3; J95.822 Acute and chronic postprocedural respiratory failure; G95.9 Disease of spinal cord, unspecified; E44.0 Moderate protein-calorie malnutrition; I48.20 Chronic atrial fibrillation, unspecified; J44.9 Chronic obstructive pulmonary disease, unspecified; E11.9 Type 2 diabetes mellitus without complications; I10 Essential (primary) hypertension; I25.10 Atherosclerotic heart disease of native coronary artery without angina pectoris; G89.29 Other chronic pain; M19.90 Unspecified osteoarthritis, unspecified site; M54.12 Radiculopathy, cervical region; E78.5 Hyperlipidemia, unspecified; Z87.442 Personal history of urinary calculi; I25.2 Old myocardial infarction; Z68.21 Body mass index [BMI] 21.0-21.9, adult; Z88.0 Allergy status to penicillin; Z98.890 Other specified postprocedural states; I69.322 Dysarthria following cerebral infarction; Z71.6 Tobacco abuse counseling; Z93.0 Tracheostomy status; Z88.8 Allergy status to other drugs, medicaments and biological substances; Z87.891 Personal history of nicotine dependence; Z79.01 Long term (current) use of anticoagulants; Z86.711 Personal history of pulmonary embolism; Z79.4 Long term (current) use of insulin; Z79.899 Other long term (current) drug therapy; Z79.84 Long term (current) use of oral hypoglycemic drugs
CPT/HCPCS: 36415; 36416; 36600; 71045; 80048; 80053; 82805; 83036; 83735; 83880; 84145; 84484; 85014; 85018; 85025; 85049; 85610; 85730; 86141; 93005; 93010; 93306; 94002; 94003; 94660; 94664; 97139; A4314; B4087; C1713; J0169; J0665; J1100; J1171; J1644; J1650; J1815; J1940; J1956; J2185; J2250; J2270; J2272; J2405; J2470; J2704; J2720; J2765; J2800; J2919; J3010; J3373; J3490; J7120